=== PATIENT | male | born 1965 | race Caucasian/White ===

== ENCOUNTER 2019-06-02 15:33 | Inpatient (IN) | payer OTHER ==
[~2019-06-02] VITALS: Ht 162.6 cm; Wt 128.8 kg
--- NOTE | 2019-06-02 15:45 | NUR ---
Patient ambulated to bed 6. RN evaluating patient at bedside.
[2019-06-02 15:50] VITALS: BP 134/79
[2019-06-02] MEDS ORDERED: ALBUTEROL SULFATE/IPRATROPIU 3 ML SOL IH ONE ×2 (15:50→18:05)
--- NOTE | 2019-06-02 15:51 | NUR ---
RESP THERAPY AT BEDSIDE.
--- NOTE | 2019-06-02 15:54 | NUR ---
ASTHMATIC 59 YR OLD AAOX4 MALE BIB SELF C/O SOB AND COUGH X 4 DAYS. PT HAS HX OF ASTHMA. HX/RX: ASTHMA, ALBUTEROL
[2019-06-02] MEDS ORDERED: methylPREDNISolone SS 125 MG in WATER STERILE 2 ML IM ONE (15:55)
[2019-06-02] MEDS ORDERED: methylPREDNISolone SS 125 MG/2 ML VIAL ONE (16:00)
[2019-06-02] MEDS ORDERED: WATER STERILE 10 ML MC ONE (16:00)
--- NOTE | 2019-06-02 16:04 | NUR ---
RAD AT BEDSIDE
--- NOTE | 2019-06-02 16:06 | NUR ---
histotechnologist at bedside.
--- NOTE | 2019-06-02 16:40 | NUR ---
EKG completed by EMT at bedside.
[2019-06-02 16:59] LABS: BASOPHILS % (AUTO) 0.4 % (0.0-2.0); EOSINOPHILS # (AUTO) 0.3 K/uL (0-0.4); EOSINOPHILS % (AUTO) 3.4 % (0.0-4.0); HEMATOCRIT 45.1 % (36-52); HEMOGLOBIN 14.9 g/dL (12.0-18.0); LYMPHOCYTES # (AUTO) 0.8 K/uL (2.0-11.5); LYMPHOCYTES % (AUTO) 8.2 % (20.5-51.1); MEAN CORPUSCULAR HEMOGLOBIN 28 pg (27-31); MEAN CORPUSCULAR HGB CONC 33 g/dL (33-37); MEAN CORPUSCULAR VOLUME 83.3 fL (80-94); MONOCYTES # (AUTO) 0.6 K/uL (0.8-1.0); MONOCYTES % (AUTO) 6.4 % (1.7-9.3); NEUTROPHILS # (AUTO) 7.7 K/uL (1.8-7.7); NEUTROPHILS % (AUTO) 81.6 % (42.2-75.2); PLATELET COUNT (AUTO) 158 K/uL (140-450); RED BLOOD CELL COUNT(AUTO) 5.42 MIL/uL (4.20-6.10); RED CELL DISTRIBUTION WIDTH 14.4 % (11.6-13.7); WHITE BLOOD COUNT (AUTO) 9.5 K/uL (4.8-10.8)
[2019-06-02 17:15] LABS: PROTHROMBIN TIME 10.2 secs (10.8-13.4)
[2019-06-02 17:21] LABS: ANION GAP 12.6 (8-16); CARBON DIOXIDE 30.7 mmol/L (21-32); CREATININE 1.2 mg/dL (0.6-1.3); POTASSIUM 3.3 mmol/L (3.5-5.1); TOTAL BILIRUBIN 0.4 mg/dL (0.0-1.0)
[2019-06-02 17:22] LABS: ALBUMIN 3.5 g/dL (3.4-5.0)
[2019-06-02] MEDS ORDERED: NACL 0.9% 500 ML IV ONE (18:05)
[2019-06-02] MEDS ORDERED: MAG SULF 2000 MG/WATER PREMIX 50 ML IV ONE (18:05)
[2019-06-02] MEDS ORDERED: methylPREDNISolone SS 125 MG/2 ML VIAL IVP ONE (18:05)
[2019-06-02] MEDS ORDERED: ACETAMINOPHEN 325 MG TAB PO PRN (18:20)
[2019-06-02] MEDS ORDERED: ONDANSETRON 4 MG/2 ML VIAL IVP PRN (18:20)
[2019-06-02] MEDS ORDERED: POTASSIUM CHLORIDE 10 MEQ TABER PO SCH (18:20)
[2019-06-02] MEDS ORDERED: ALBUTEROL SULFATE/IPRATROPIU 3 ML SOL IH PRN (18:20)
[2019-06-02] MEDS ORDERED: PRON INH (18:49)
--- NOTE | 2019-06-02 19:05 | NUR ---
REPORT RECEIVED FROM ELECTION ASSISTANT MAYRA AT BEDSIDE FOR CONTINUITY OF CARE. PATIENT AOX4, AMBULATORY, ARRIVED TO FLOOR VIA WHEELCHAIR. PATIENT HAS INTERMITTENT COUGH, NO S/S OF SOB OR DISTRESS ON ROOM AIR. PATIENT DENIES PAIN. IV SITE INTACT, PATENT, ASYMPTOMATIC, INFUSING IVF WELL. MRSA SCREENING DONE. ORIENTED PATIENT TO ROOM, CALL LIGHT, BATHROOM, AND TV. PATIENT VERBALIZED UNDERSTANDING.
--- NOTE | 2019-06-02 19:06 | NUR ---
Patient will be admitted to care of DR PETTIT. Admited to M/S. Will go to [facility]. Belongings list completed. Report to [facility] CHISHOLM.
[2019-06-02 19:13] LABS: FREE T4 (FREE THYROXINE) 0.96 ng/dL (0.76-1.46); MAGNESIUM 1.5 mg/dL (1.8-2.4); PHOSPHORUS 3.3 mg/dL (2.5-4.9); THYROID STIMULATING HORMONE 0.75 uIU/mL (0.34-3.74)
[2019-06-02] MEDS ORDERED: AZITHROMYCIN 250 MG TAB PO SCH (19:25)
--- NOTE | 2019-06-02 19:25 | NUR ---
REPORT GIVEN TO DEHYDROGENATION CONVERTER OPERATOR NURSE AT BEDSIDE FOR CONTINUITY OF CARE.
--- NOTE | 2019-06-02 19:30 | NUR ---
RECEIVED FROM AM RN IN BED AWAKE AND ALERT. ABLE TO VERBALIZE NEEDS WELL. NO SOB. DENIES ANY PAIN AT THIS TIME. CALL LIGHT WITH IN REACH. ORIENTED TO BED, CALL LIGHT USE AND ROOM. ENCOURAGED TO CALL FOR ANY HELP HE MAY NEED. PT. ABLE TO UNDERSTAND TRISTANIAN AND MALAGASY NOTED. HAD BEEN ADMINISTERED SOLU MEDROL IVP AND BREATHING TREATMENTS IN ER. SKIN INTACT.
[2019-06-02] MEDS ORDERED: cefTRIAXone 1,000 MG VIAL ONE (19:53)
[2019-06-02 20:00] VITALS: BP 111/73
[2019-06-02] MEDS: DOCUSATE SODIUM 100 MG GELCAP PO SCH (20:30)
[2019-06-02] MEDS ORDERED: DYR50 PO (20:38)
--- NOTE | 2019-06-02 21:00 | NUR ---
RESIDENT MD IN HERE TALKING WITH PT. FOR ADMISSION AND HISTORY TAKING WITH HELP OF CO FOUNDER # [phone]. PT. PROVIDED WITH JHONATAN COBOS REQUESTED RT MANZANO. ABLE TO VERBALIZE IN [place] TOO.
[2019-06-02] MEDS: BUDESONIDE 0.5 MG/2 ML NEBU INH SCH (21:12)
[2019-06-02] MEDS: NACL 0.9% 1,000 ML IV SCH (21:59)
--- NOTE | 2019-06-02 22:01 | NUR ---
ACCOMPANYING SPOUSE /PT TO RESTROOM TO URINATE. NOTED ABLE TO STAND UP INDEPENDENTLY. ROM X 4. NO COMPLAINTS OF ANY SOB AT THIS TIME. ROOM AIR. 93 %. 02 SAT. AFEBRILE. CALL LIGHT WITH IN REACH AT ALL TIMES.
[2019-06-02] MEDS ORDERED: PNEUMOCOCCAL VACCINE 23 MCG/0.5 ML VIAL IMVAC SCH (22:40)
--- NOTE | 2019-06-02 23:17 | NUR ---
SLEEPING AT THIS TIME. CALL LIGHT AT BEDSIDE FOR EASY ACCESS. COUGHING STILL INTERMITTENTLY. AFEBRILE. WITH NS AT 100 ML INFUSING WELL AT THIS TIME.
[2019-06-03] VITALS: BP 117/66
[2019-06-03] MEDS: methylPREDNISolone SS 40 MG/ML VIAL IVP SCH ×5 (00:27→23:04)
[2019-06-03 02:53] LABS: APPEARANCE,URINE CLEAR (CLEAR); BILIRUBIN,URINE NEGATIVE (NEGATIVE); BLOOD, URINE NEGATIVE (NEGATIVE); COLOR,URINE YELLOW (YELLOW); LEUKOCYTE ESTERASE ,URINE NEGATIVE (NEGATIVE); NITRITE, URINE NEGATIVE (NEGATIVE); UGLUCOSE NEGATIVE (NEGATIVE)
[2019-06-03 02:57] LABS: BARBITURATE, URINE NEG. ng/ml (NEG <=200); BENZODIAZEPINE, URINE NEG. ng/mL (NEG <=200); CANNABINOID, URINE NEG. ng/mL (NEG <=50); COCAINE, URINE NEG. ng/mL (NEG <=300); OPIATE, URINE NEG. ng/mL (NEG <=2000); PHENCYCLIDINE SCREEN,URINE NEG. ng/mL (NEG <=25)
[2019-06-03 03:41] LABS: RBC,URINE 0-5 /HPF (0-5); WBC,URINE NONE SEEN /HPF (0-5)
[2019-06-03 03:42] LABS: HYALINE CASTS, URINE 0-2 /LPF (None Seen)
--- NOTE | 2019-06-03 03:52 | NUR ---
PT. SLEEPING WELL. NO COMPLAINTS OF SOB SINCE ADMISSION ON THE FLOOR. WITH BREATHING TREATMENTS. NO ADVERSE REACTIONS TO IV ABT AND P.O ABT ADMINISTERED. CALL LIGHT WITH IN REACH.
[2019-06-03] MEDS: NACL 0.9% 1,000 ML IV SCH ×2 (04:14→14:20)
[2019-06-03] MEDS ORDERED: methylPREDNISolone SS 125 MG/2 ML VIAL IVP SCH (06:00)
--- NOTE | 2019-06-03 06:25 | NUR ---
PEAK FLOW:PRE TX 120 POST TX 150
[2019-06-03] MEDS: BUDESONIDE 0.5 MG/2 ML NEBU INH SCH ×2 (06:33→20:15)
--- NOTE | 2019-06-03 06:51 | NUR ---
BREATHING TREATMENT ON GOING AT THIS TIME. NO COMPLAINTS DONE. DENIES ANY PAIN AT THIS TIME. ABLE TO AMBULATE WELL TO RESTROOM. CALL LIGHT WITH IN REACH AT ALL TIMES. WILL ENDORSE TO AM RN FOR CONTINUITY OF CARE.
[2019-06-03] MEDS: ALBUTEROL SULFATE/IPRATROPIU 3 ML SOL IH SCH ×4 (06:54→23:32)
--- NOTE | 2019-06-03 07:13 | NUR ---
RECEIVED PATIENT FROM GATE WATCH NURSE FOR CONTINUITY OF CARE. PATIENT IS SLEEPING, BUT OPEN EYES WHEN NAME IS CALLED. RESPIRATIONS EVEN AND UNLABORED, ON 2L O2 VIA NC. PATIENT DENIES SOB. VISIBLE CHEST RISE NOTED. DENIES CHEST PAIN. ABDOMEN SOFT, ROUND, AND NONTENDER. BOWEL SOUNDS ACTIVE X4 QUADS. SKIN WARM, DRY, AND INTACT. PATIENT IS AMBULATORY. BED IN LOW POSITION. CALL LIGHT IS WITHIN REACH. SAFETY MEASURES IN PLACE. WILL CONTINUE TO MONITOR.
[2019-06-03 07:54] LABS: HEMATOCRIT 40.9 % (36-52); HEMOGLOBIN 13.9 g/dL (12.0-18.0); MEAN CORPUSCULAR HEMOGLOBIN 28 pg (27-31); MEAN CORPUSCULAR HGB CONC 34 g/dL (33-37); MEAN CORPUSCULAR VOLUME 80.9 fL (80-94); PLATELET COUNT (AUTO) 145 K/uL (140-450); RED BLOOD CELL COUNT(AUTO) 5.05 MIL/uL (4.20-6.10); WHITE BLOOD COUNT (AUTO) 9.7 K/uL (4.8-10.8)
[2019-06-03 08:00] VITALS: BP 137/100
[2019-06-03 08:07] LABS: ANION GAP 12.3 (8-16); CARBON DIOXIDE 27.6 mmol/L (21-32); CREATININE 1.2 mg/dL (0.6-1.3); POTASSIUM 3.9 mmol/L (3.5-5.1)
[2019-06-03 08:59] LABS: MAGNESIUM 2.1 mg/dL (1.8-2.4)
[2019-06-03 09:00] LABS: CHOL/HDL RATIO 3.4 (1-4.5); PHOSPHORUS 2.6 mg/dL (2.5-4.9)
[2019-06-03] MEDS ORDERED: TRIAMTERENE 25 MG PO SCH (09:00)
[2019-06-03] MEDS: AZITHROMYCIN 250 MG TAB PO SCH (09:05)
[2019-06-03] MEDS: DOCUSATE SODIUM 100 MG GELCAP PO SCH ×2 (09:06→20:13)
--- NOTE | 2019-06-03 09:43 | NUR ---
HANG ROCEPHIN VIA IVPB. GIVEN MORNING MEDICATIONS PO. EXPLAINED TO PATIENT MEDS AND SIDE EFFECTS. PATIENT VERBALIZED UNDERSTANDING. PATIENT DENIES SOB. ON 2L O2 VIA NC. BED IN LOW POSITION. CALL LIGHT IS WITHIN REACH. WILL CONTINUE TO MONITOR
--- NOTE | 2019-06-03 10:00 | NUR ---
PATIENT REQUESTED TO CLOSE THE DOOR BECAUSE HE WANTS TO REST. NO COMPLAINTS OF SOB. ON 2L O2 VIA NC. WILL CONTINUE TO MONITOR
--- NOTE | 2019-06-03 10:34 | NUR ---
XRAY AT BEDSIDE
[2019-06-03 10:52] LABS: BASOPHILS % (MANUAL) 0 % (0-2); EOSINOPHILS % (MANUAL) 0 % (0-4); LYMPHOCYTES % (MANUAL) 5 % (20-46); MONOCYTES % (MANUAL) 3 % (5-12)
--- NOTE | 2019-06-03 11:01 | NUR ---
PATIENT IS ON HIS PHONE AT THIS TIME. NO SOB. BED IN LOW POSITION. CALL LIGHT IS WITHIN REACH. WILL CONTINUE TO MONITOR
--- NOTE | 2019-06-03 11:53 | NUR ---
ADMINISTERED SOLU-MEDROL VIA IVP. EXPLAINED TO PATIENT MED AND SIDE EFFECTS. PATIENT VERBALIZED UNDERSTANDING. WILL CONTINUE TO MONITOR
--- NOTE | 2019-06-03 11:54 | NUR ---
HANG NEW BAG OF 1000 NS AT RATE OF 100 ML/HR
[2019-06-03] MEDS ORDERED: guaiFENesin/CODEINE 100/10MG 5 ML UDC PO PRN (12:35)
--- NOTE | 2019-06-03 12:51 | NUR ---
PEAK FLOW PRE TX :160 POST TX 170
[2019-06-03 16:00] VITALS: BP 142/74
[2019-06-03] MEDS ORDERED: MAG SULF 2000 MG/WATER PREMIX 100 ML IV SCH (16:00)
[2019-06-03] MEDS: MAG SULF 2000 MG/WATER PREMIX 100 ML IV SCH ×2 (16:19→18:33)
--- NOTE | 2019-06-03 17:01 | NUR ---
PATIENT IS AWAKE, TALKING TO FAMILY MEMBERS. NO SOB. ON 2L O2 VIA NC. BED IN LOW POSITION. CALL LIGHT IS WITHIN REACH. WILL CONTINUE TO MONITOR
--- NOTE | 2019-06-03 17:51 | NUR ---
GIVEN SOLU-MEDROL VIA IVP. EXPLAINED TO PATIENT MED AND SIDE EFFECTS. PATIENT VERBALIZED UNDERSTANDING. BED IN LOW POSITION. CALL LIGHT IS WITHIN REACH. WILL CONTINUE TO MONITOR
--- NOTE | 2019-06-03 18:33 | NUR ---
HANG 2ND BAG OF MAG RIDER A BRONCHODILATOR FOR ASTHMA. EXPLAINED MED AND SIDE EFFECTS. PATIENT VERBALIZED UNDERSTANDING. BED IN LOW POSITION. CALL LIGHT IS WITHIN REACH.
--- NOTE | 2019-06-03 19:18 | NUR ---
ENDORSED PATIENT TO THE NIGHT NURSE FOR CONTINUITY OF CARE. AAOX4. NO SIGNS OF DISTRESS NOTED. BED IN LOW POSITION.
--- NOTE | 2019-06-03 19:19 | NUR ---
RECEIVED BEDSIDE REPORT FROM DAY SHIFT NURSE. PT IN BED, RESTING. NO SOB OR ANY RESPIRATORY DISTRESS NOTED, BREATHING EVEN AND UNLABORED WITH 2LPM O2 VIA NC. SKIN INTACT, WARM AND DRY TO TOUCH. IV SITE ON LAC, 20G, PATENT, INTACT, AND ASYMPTOMATIC. BOARD UPDATED, POC REVIEWED AND DISCUSSED WITH PT. PT VERBALIZED UNDERSTANDING. ALL SAFETY MEASUREMENT ARE MET. BED IN LOW POSITION, CALL LIGHT WITHIN REACH.
--- NOTE | 2019-06-03 20:17 | NUR ---
GIVEN COLACE, AND HEPARIN MD ORDERED. PT TOLERATED WELL.
--- NOTE | 2019-06-03 20:20 | NUR ---
RECEIVED PT FROM AM SHIFT. PT IN NO APPARENT RESPIRATORY DISTRESS AT THIS TIME; HR 75, RR 20, SPO2 94% ON 2L NC, AND A WHEEZING BREATH SOUNDS. HHN TX GIVEN ORDERED WITH NO ADVERSE REACTION. PEAK FLOW: PRE 160 AND POST 170. WILL CONTINUE TO MONITOR PT.
--- NOTE | 2019-06-03 22:10 | NUR ---
PT LAYING ON BED, WATCHING TV. NO ACUTE DISTRESS NOTED.
--- NOTE | 2019-06-03 23:04 | NUR ---
GIVEN SOLU-MEDROL MD ORDERED. PT TOLERATED WELL.
[2019-06-04] VITALS: BP 128/82
[2019-06-04] MEDS: MELATONIN 3 MG TAB PO PRN (00:05)
--- NOTE | 2019-06-04 00:05 | NUR ---
PT C/O SLEEPLESSNESS, GIVEN MELATONIN MD ORDERED.
[2019-06-04] MEDS: NACL 0.9% 1,000 ML IV SCH ×3 (00:08→20:49)
--- NOTE | 2019-06-04 02:22 | NUR ---
PT SLEEPING IN BED COMFORTABLY. NO ACUTE DISTRESS NOTED.
--- NOTE | 2019-06-04 04:07 | NUR ---
PT SLEEPING IN BED COMFORTABLY. NO ACUTE DISTRESS NOTED.
[2019-06-04] MEDS: methylPREDNISolone SS 40 MG/ML VIAL IVP SCH ×3 (05:35→18:47)
--- NOTE | 2019-06-04 05:35 | NUR ---
GIVEN SOLU MEDROL MD ORDERED. PT TOLERATED WELL.
[2019-06-04] MEDS ORDERED: methylPREDNISolone SS 40 MG/ML VIAL IVP SCH (06:00)
[2019-06-04] MEDS: ALBUTEROL SULFATE/IPRATROPIU 3 ML SOL IH SCH ×4 (06:40→19:31)
[2019-06-04] MEDS: BUDESONIDE 0.5 MG/2 ML NEBU INH SCH ×2 (06:41→19:31)
--- NOTE | 2019-06-04 07:15 | NUR ---
RECEIVED BEDSIDE REPORT FROM STERILE TECHNICIAN NURSE. PT IS AWAKE AND ALERT IN BED ON 2L O2 NC. NO S/S OF ACUTE DISTRESS OR SOB. IV SITE L AC 20 G, INFUSING NS 100 ML/HR. SKIN IS INTACT. PT IS AMBULATORY. CALL LIGHT IS WITHIN REACH. WILL CONTINUE TO MONITOR.
--- NOTE | 2019-06-04 07:27 | NUR ---
ENDORSED PT TO DAY SHIFT NURSE FOR CONTINUOUS CARE. PT IN STABLE CONDITION.
[2019-06-04 07:38] LABS: BASOPHILS # (AUTO) 0.1 K/uL (0.00-0.22); BASOPHILS % (AUTO) 0.5 % (0.0-2.0); EOSINOPHILS % (AUTO) 0.1 % (0.0-4.0); HEMATOCRIT 39.7 % (36-52); HEMOGLOBIN 13.2 g/dL (12.0-18.0); LYMPHOCYTES # (AUTO) 0.5 K/uL (2.0-11.5); MEAN CORPUSCULAR HEMOGLOBIN 27 pg (27-31); MEAN CORPUSCULAR HGB CONC 33 g/dL (33-37); MEAN CORPUSCULAR VOLUME 82.2 fL (80-94); MONOCYTES # (AUTO) 0.4 K/uL (0.8-1.0); MONOCYTES % (AUTO) 2.9 % (1.7-9.3); NEUTROPHILS # (AUTO) 12.6 K/uL (1.8-7.7); NEUTROPHILS % (AUTO) 92.5 % (42.2-75.2); PLATELET COUNT (AUTO) 138 K/uL (140-450); RED BLOOD CELL COUNT(AUTO) 4.83 MIL/uL (4.20-6.10); RED CELL DISTRIBUTION WIDTH 14.3 % (11.6-13.7); WHITE BLOOD COUNT (AUTO) 13.7 K/uL (4.8-10.8)
[2019-06-04 07:53] LABS: ANION GAP 11.4 (8-16); CARBON DIOXIDE 27.5 mmol/L (21-32); MAGNESIUM 2.4 mg/dL (1.8-2.4); PHOSPHORUS 2.8 mg/dL (2.5-4.9); POTASSIUM 3.9 mmol/L (3.5-5.1)
[2019-06-04 08:00] VITALS: BP 122/76
--- NOTE | 2019-06-04 08:28 | NUR ---
PT UPGRADED TO TELEMETRY. ENDORSED PT TO [facility] GALICIA, FOR CONTINUITY OF CARE.
--- NOTE | 2019-06-04 08:30 | NUR ---
RECEIVED BEDSIDE REPORT FROM BRADY GARIBAY FOR CONTINUITY OF CARE. PT AWAKE AND RESTING ON BED. PT IS AOX4, ABLE TO MAKE NEED KNOWN AND COMMUNICATE APPROPRIATELY. RESPIRATION EVEN AND UNLABORED ON 2LPM VIA NC. DENIED CHEST PAIN, SOB AND DIZZINESS. NO SIGNS OF DISTRESS NOTED. IV ON LAC 20G, CLEAN AND INTACT, INFUSING NS AT 100 ML/HR. SKIN CLEAN AND INTACT. PT IS AMBULATORY AND CONTINENT. DISCUSSED PLAN OF CARE WITH PT AND PT SAID OK. TELE MONITOR ATTACHED. SAFETY MEASURES IN PLACE. BED IN LOW POSITION AND CALL LIGHT WITHIN REACH. INSTRUCTED PT TO USE THE CALL LIGHT FOR ANY ASSISTANCE AND PT WAS AWARE.
--- NOTE | 2019-06-04 08:52 | NUR ---
PATIENT HAS BEEN SCREENED AND CATEGORIZED LOW NUTRITION RISK. PATIENT WILL BE SEEN WITHIN 7 DAYS OF ADMISSION. 06/09/[address]
--- NOTE | 2019-06-04 08:55 | NUR ---
IS TALKING TO PT AT BEDSIDE. NO SIGNS OF DISTRESS NOTED. TELE MONITOR ATTACHED. SAFETY MEASURES IN PLACE.
[2019-06-04] MEDS: AZITHROMYCIN 250 MG TAB PO SCH (09:25)
[2019-06-04] MEDS: DOCUSATE SODIUM 100 MG GELCAP PO SCH ×2 (09:25→20:46)
--- NOTE | 2019-06-04 09:26 | NUR ---
INFORMED THAT PLT IS 138L FROM AM LAB, AND STATED IT'S OK TO ADMINISTER HEPARIN SUBQ. ADMINISTERED SCHEDULED MEDS PER MD ORDER, MEDS ED PROVIDED TO PT AND PT SAID OK. PT TOLERATED MEDS WELL. PT AWAKE AND RESTING ON BED AT THIS TIME. INFORMED PT THAT DR ORDER CT ANGIO CHEST WITH CONTRAST AND CONSENT NEEDED, PT SAID OK. WILL OBTAIN CONSENT SHORTLY. PT DENIES PAIN, SOB AND DIZZINESS. NO SIGNS OF DISTRESS NOTED. TELE MONITOR ATTACHED. SAFETY MEASURES IN PLACE.
--- NOTE | 2019-06-04 10:44 | NUR ---
OBTAINED CONSENT FROM PATIENT FOR CT SCAN. PT WAS AWARE OF PROCEDURE AND AGREED TO PROCEDURE. PT IS SITTING AT BED SIDE NO SIGNS OF DISTRESS NOTED. TELE MONITOR ATTACHED. SAFETY MEASURES IN PLACE.
--- NOTE | 2019-06-04 10:47 | NUR ---
CALLED [facility] AND SPOKE RAFAEL. PER RAFAEL, SHE WILL INTERNAL CONTROL CONSULTANT PT AROUND 1200 NOON AND MAKE NO FOOD AND DRINK FROM NOW ON. INSTRUCTED PT TO NOT EAT AND DRINK FROM NOW ON, PT AWARE.
--- NOTE | 2019-06-04 11:11 | NUR ---
RT IS GOING ABG AT BEDSIDE. NO SIGNS OF DISTRESS NOTED. TELE MONITOR ATTACHED. SAFETY MEASURES IN PLACE.
--- NOTE | 2019-06-04 11:51 | NUR ---
EXPLAINED TO PT THAT OUR PHARMACY DOES NOT HAVE THE DOSAGE OF DYRENIUM 25 MG AND THE ONE WE HAVE IS IN CAPSULE, CANNOT BREAK IT. PT WAS AWARE AND SAID, "OK, I WILL TEXT MY TO BRING IT IN ONCE SHE COMES VISIT." PT IS AWAKE AND RESTING ON BED. NO SIGNS OF DISTRESS NOTED. TELE MONITOR ATTACHED. SAFETY MEASURES IN PLACE.
--- NOTE | 2019-06-04 12:53 | NUR ---
ADMINISTERED SOLUMEDROL PER MD ORDER. PATIENT SITTING AT BEDSIDE EATING LUNCH TRAY. NO SIGNS OF DISTRESS NOTED. PT BED IN LOW POSITION AND CALL LIGHT IN REACH. PT INSTRUCTED TO USE CALL LIGHT FOR ASSISTANCE
--- NOTE | 2019-06-04 13:35 | NUR ---
HOURLY ROUNDING. PT IS LAYING IN BED RECEIVING AN ECHOCARDIOGRAM. NO DISTRESS NOTED. TELE MONITOR IN PLACE. SAFETY MEASURES IN PLACE. CALL-LIGHT WITHIN REACH AND PT INSTRUCTED TO USE IT FOR ASSISTANCE.
--- NOTE | 2019-06-04 14:31 | NUR ---
RECEIVED A CALL FROM PT'S SHAE AND EXPLAINED TO SHAE ON REGARD OF MEDICATION-DYRENIUM 25 MG. SHAE WAS AWARE AND SAID, "OK, I WILL BRING IT WHEN I VISIT HIM." UPDATED SHAE WITH PT'S CURRENT CONDITION. PT IS TALKING WITH SHAE ON THE PHONE AT THIS TIME. NO SIGNS OF DISTRESS NOTED. TELE MONITOR ATTACHED. SAFETY MEASURES IN PLACE.
--- NOTE | 2019-06-04 15:04 | NUR ---
RECEIVED VERBAL ORDER FROM DR MAO THAT ORDER 3ML DOUNEB FOR Q2H PRN. REPEATED AND CONFIRMED ORDER WITH DR MAO. Addendum: 06/04/19 at 1539 by Lucia Valdes RN DR FAN
--- NOTE | 2019-06-04 15:12 | NUR ---
HOURLY ROUNDING. PATIENT IS RESTING IN BED. NO SIGNS OF DISTRESS NOTED. PATIENTS BREATHING IS EVEN AND UNLABORED. TELE MONITOR ATTACHED. SAFETY MEASURES IN PLACE. BED IN LOW POSITION AND CALL LIGHT WITHIN REACH.
[2019-06-04] MEDS: ACETYLCYSTEINE 10% (100 MG/ML) 100 MG/ML VIAL INH SCH ×2 (15:18→19:31)
--- NOTE | 2019-06-04 15:51 | NUR ---
DISCHARGE PLANNING: THIS IS A 53 Y/O MALE PATIENT FROM HOME, WHO CAME IN DUE TO ASTHMA, COLD AND COUGH X 4 DAYS. PAST MEDICAL HISTORY INCLUDE ASTHMA AND HTN. INITIAL DIAGNOSIS OF ASTHMA EXACERBATION. CURRENT LABS INCLUDE WBC 13.7, H/H 13.2/39.7, NA/K 141/3.9, BUN/CREA 27/1.0. ON AZITHROMYCIN, ROCEPHIN AND SOLU-MEDROL. SPUTUM AND MRSA NARES PENDING. CARDIO AND PULMO CONSULTS IN PLACE. DC PLAN BACK TO HOME ONCE STABLE. Addendum: 06/05/19 at 1535 by Tabatha Amaya CURRENT LABS INCLUDE WBC 12.1, H/H 12.6/38.7, NA/K 143/4.0, BUN/CREA 23/0.9. ON AZITHROMYCIN AND ROCEPHIN. SPUTUM C/S PENDING. PULMO AND CARDIO CONSULTS IN PLACE. DC PLAN BACK TO HOME ONCE STABLE.
[2019-06-04 16:00] VITALS: BP 129/71
--- NOTE | 2019-06-04 18:47 | NUR ---
ADMINISTERED SOLUMEDROL PER MD ORDER. PT TOLERATED WELL. NO SIGNS OF DISTRESS NOTED. PT LAYING IN BED WATCHING TV. TELE MONITOR IN PLACE. SAFETY MEASURES IN PLACE. BED IN LOW POSITION AND CALL LIGHT WITHIN REACH. PT INFORMED TO USE CALL LIGHT FOR ASSISTANCE.
--- NOTE | 2019-06-04 19:27 | NUR ---
ENDORSED PT TO AS400 CONSULTANT NURSE AT BEDSIDE. PT LAYING IN BED WATCHING TV. NO SIGNS OF DISTRESS NOTED. PT IS STABLE. TELE MONITOR ATTACHED AND SAFETY MEASURES IN PLACE
--- NOTE | 2019-06-04 19:27 | NUR ---
RECIEVED PT .AAOX4 , ON O2 INH AT 2LPM/NC - O2 SAT .WNL . ON BREATHING TXT . IV SITE INTACT AND PATENT , ON SAFETY PRECAUTION PROTOCOL. PLAN OF CARE DISCUSSED AND VERBALIZE UNDERSTANDING - CALL LIGHT WITHIN REACH . WILL CONT. TO MONITOR.
[2019-06-04 20:00] VITALS: BP 125/68
--- NOTE | 2019-06-04 20:35 | NUR ---
ENDORSE TO KISSES FOR CONT. OF CARE . PT IS IN STABLE CONDITION.
--- NOTE | 2019-06-04 20:49 | NUR ---
ALL SCHEDULED MEDS WERE GIVEN PER ORDER. NO ASE NOTED. WILL CONTINUE TO MONITOR.
--- NOTE | 2019-06-04 21:36 | NUR ---
1931 PATIENTS PEAKFLOW PRE AND POST HHNTX 160/160. NO REAL IMPROVEMENT
--- NOTE | 2019-06-04 22:43 | NUR ---
CHECKED PATIENT. PATIENT IS ON THE PHONE NO DISTRESS NOTED. WILL CONTINUE TO MONITOR.
[2019-06-05] VITALS: BP 128/71
--- NOTE | 2019-06-05 00:10 | NUR ---
VITALS WERE TAKEN. PATIENT IS IN STABLE CONDITION. NO DISTRESS NOTED. DENIES PAIN. WILL CONTINUE TO MONITOR.
--- NOTE | 2019-06-05 00:44 | NUR ---
ENDORSED GIVEN TO MILENA GARIBAY FOR CONTINUITY OF CARE. PATIENT IS IN STABLE CONDITION.
--- NOTE | 2019-06-05 00:49 | NUR ---
RECEIVED PT SLEEPING, VISIBLE CHEST RISE AND FALL, NO SIGNS OF SOB NOTED, ON O2 AT 2L VIA NC, IVF INFUSING WELL, CALL LIGHT WITHIN REACH, MONITORED CLOSELY.
[2019-06-05] MEDS: ALBUTEROL SULFATE/IPRATROPIU 3 ML SOL IH PRN (03:04)
[2019-06-05 04:00] VITALS: BP 125/71
--- NOTE | 2019-06-05 04:00 | NUR ---
PT SLEEPING, NO SIGNS OF DISTRESS, VITAL SIGNS STABLE, DENIES ANY PAIN, NO SOB NOTED, CONTINUE ON O2 AT 2L NC, MONITORED CLOSELY.
--- NOTE | 2019-06-05 05:50 | NUR ---
PT SEEN SITTING ON SIDE OF BED, NO SOB NOTED, IVF INFUSING WELL, MONITORED CLOSELY.
[2019-06-05] MEDS: NACL 0.9% 1,000 ML IV SCH ×2 (06:20→08:44)
[2019-06-05 07:17] LABS: MAGNESIUM 2.2 mg/dL (1.8-2.4); PHOSPHORUS 3.1 mg/dL (2.5-4.9)
[2019-06-05] MEDS: BUDESONIDE 0.5 MG/2 ML NEBU INH SCH ×2 (07:20→20:50)
[2019-06-05] MEDS: ALBUTEROL SULFATE/IPRATROPIU 3 ML SOL IH SCH ×4 (07:20→20:50)
[2019-06-05] MEDS: ACETYLCYSTEINE 10% (100 MG/ML) 100 MG/ML VIAL INH SCH ×3 (07:20→20:50)
--- NOTE | 2019-06-05 07:20 | NUR ---
PT AWAKE, NO SIGNS OF DISTRESS, REPORT GIVEN TO RN KADEEM FOR CONTINUITY OF CARE.
--- NOTE | 2019-06-05 07:30 | NUR ---
RECEIVED PT AAOX4. NO SOB NOTED, PT ON OXYGEN AT 2LPM WITH SATS OF 97%. IV TO LAC PATENT AND INTACT. CHEST, DIMINISHED AIR ENTRY TO THE BASES, WHEEZING HEARD BILATERALLY UPON EXPIRATION. ABDOMEN ROUND BUT SOFT. BOWEL SOUNDS PRESENT. NO EDEMA NOTED. INSTRUCTED PT TO CALL FOR ASSISTANCE, CALL LIGHT WITHIN REACH, VERBALIZED UNDERSTANDING.
[2019-06-05 08:00] VITALS: BP 144/87
[2019-06-05 08:01] LABS: ANION GAP 11.9 (8-16); CARBON DIOXIDE 28.1 mmol/L (21-32); CREATININE 0.9 mg/dL (0.6-1.3)
[2019-06-05 08:24] LABS: BASOPHILS # (AUTO) 0.1 K/uL (0.00-0.22); BASOPHILS % (AUTO) 0.5 % (0.0-2.0); HEMATOCRIT 38.7 % (36-52); HEMOGLOBIN 12.6 g/dL (12.0-18.0); LYMPHOCYTES # (AUTO) 0.5 K/uL (2.0-11.5); LYMPHOCYTES % (AUTO) 4.2 % (20.5-51.1); MEAN CORPUSCULAR HEMOGLOBIN 27 pg (27-31); MEAN CORPUSCULAR HGB CONC 33 g/dL (33-37); MEAN CORPUSCULAR VOLUME 82.7 fL (80-94); MONOCYTES # (AUTO) 0.6 K/uL (0.8-1.0); MONOCYTES % (AUTO) 4.6 % (1.7-9.3); NEUTROPHILS # (AUTO) 10.9 K/uL (1.8-7.7); NEUTROPHILS % (AUTO) 90.7 % (42.2-75.2); PLATELET COUNT (AUTO) 143 K/uL (140-450); RED BLOOD CELL COUNT(AUTO) 4.69 MIL/uL (4.20-6.10); RED CELL DISTRIBUTION WIDTH 14.4 % (11.6-13.7); WHITE BLOOD COUNT (AUTO) 12.1 K/uL (4.8-10.8)
[2019-06-05] MEDS: DOCUSATE SODIUM 100 MG GELCAP PO SCH ×2 (08:45→21:39)
[2019-06-05] MEDS: AZITHROMYCIN 250 MG TAB PO SCH (08:45)
[2019-06-05] MEDS ORDERED: methylPREDNISolone SS 40 MG/ML VIAL IVP SCH (09:00)
[2019-06-05] MEDS: methylPREDNISolone SS 40 MG/ML VIAL IVP SCH ×2 (10:15→21:39)
[2019-06-05] MEDS ORDERED: HYDR-133 PO (10:41)
[2019-06-05] MEDS ORDERED: TRIAMTERENE HCTZ PO SCH (11:14)
--- NOTE | 2019-06-05 11:21 | NUR ---
PT AWAKE, NO SOB NOTED. NO C/O PAIN AT THIS TIME. ENDORSED TO [facility] FOR CONTINUITY OF CARE.
[2019-06-05 16:00] VITALS: BP 138/78
--- NOTE | 2019-06-05 19:30 | NUR ---
RECEIVED BEDSIDE REPORT FROM DAY SHIFT NURSE FOURTH MATE, PT STABLE, NO DISTRESS NOTED, IV TO L AC 20 G, PT PULLED IT OUT, WILL PUT IN NEW IV, PT ON 2LPM O2 VIA NC, PT STATED HAVING SHORTNESS OF BREATHE, RT CALLED FOR BREATHING TREATMENT, PT RESTING, NO DISTRESS NOTED, CALL LIGHT WITHIN REACH, WILL CONTINUE TO MONITOR.
--- NOTE | 2019-06-05 21:13 | NUR ---
RECEIVED PATIENT ON 3L NASAL CANNULA, PULSE OX SAT 97%. PRE-TX PEAK FLOW NOT OBTAINED DUE TO BEING CALLED TO ED FOR EMERGENCY. SCHEDULED BREATHING TREATMENTS ADMINISTERED. TOLERATED TXs WELL WITHOUT ADVERSE SIDE EFFECTS. POST PEAK FLOW OBTAINED AND DOCUMENTED ON TREATMENT FORM. PT MADE AWARE OF ORDERED MEDICATION FREQUENCY AND INSTRUCTED TO CALL NEEDED FOR SOB. POST TX ORAL RINSE DONE. TITRATED OXYGEN TO 2L NC, PULSE OX SAT 96%. NO ACUTE RESPIRATORY DISTRESS NOTED AT THIS TIME. WILL CONTINUE TO MONITOR.
--- NOTE | 2019-06-05 21:45 | NUR ---
DUE MEDICATION ADMINISTERED, PT TOLERATED WELL, NO DISTRESS NOTED, CALL LIGHT WITHIN EACH, WILL CONTINUE TO MONITOR.
--- NOTE | 2019-06-05 23:22 | NUR ---
CHECKED ON PT, PT RESTING, NO DISTRESS NOTED, CALL LIGHT WITHIN REACH, WILL CONTINUE TO MONITOR.
[2019-06-06] VITALS: BP 152/82
[2019-06-06] MEDS: MELATONIN 3 MG TAB PO PRN (01:20)
--- NOTE | 2019-06-06 01:20 | NUR ---
PT STATED UNABLE TO SLEEP, REQUESTING SLEEPING PILL, MEDICATION PER DR ORDER MELATONIN ADMINISTERED, PT TOLERATED WELL, CALL LIGHT WITHIN REACH, WILL CONTINUE TO MONITOR.
[2019-06-06] MEDS: NACL 0.9% 1,000 ML IV SCH ×2 (02:21→13:01)
[2019-06-06] MEDS: ALBUTEROL SULFATE/IPRATROPIU 3 ML SOL IH PRN (03:22)
--- NOTE | 2019-06-06 03:29 | NUR ---
PT SLEEPING, NO DISTRESS NOTED, CALL LIGHT WITHIN REACH, WILL CONTINUE TO MONITOR
--- NOTE | 2019-06-06 03:32 | NUR ---
PATIENT COMPLAINS OF SOB. PRN HHN TX ADMINISTERED. TOLERATED TX WELL WITHOUT ADVERSE SIDE EFFECTS. PRE AND POST PEAK FLOW PERFORMED BY PATIENT WITH IMPROVEMENT POST TX. NO ACUTE RESPIRATORY DISTRESS NOTED. WILL CONTINUE TO MONITOR.
[2019-06-06 07:13] LABS: BASOPHILS % (AUTO) 0.4 % (0.0-2.0); HEMATOCRIT 40.2 % (36-52); HEMOGLOBIN 13.4 g/dL (12.0-18.0); LYMPHOCYTES # (AUTO) 0.8 K/uL (2.0-11.5); LYMPHOCYTES % (AUTO) 8.9 % (20.5-51.1); MEAN CORPUSCULAR HEMOGLOBIN 27 pg (27-31); MEAN CORPUSCULAR HGB CONC 33 g/dL (33-37); MEAN CORPUSCULAR VOLUME 81.7 fL (80-94); MONOCYTES # (AUTO) 0.3 K/uL (0.8-1.0); MONOCYTES % (AUTO) 3.6 % (1.7-9.3); NEUTROPHILS % (AUTO) 87.1 % (42.2-75.2); PLATELET COUNT (AUTO) 156 K/uL (140-450); RED BLOOD CELL COUNT(AUTO) 4.92 MIL/uL (4.20-6.10); WHITE BLOOD COUNT (AUTO) 9.2 K/uL (4.8-10.8)
--- NOTE | 2019-06-06 07:15 | NUR ---
RECEIVED BEDSIDE REPORT FROM AMIE. PT IS AWAKE AND ALERT SITTING UP IN BED, NO S/S OF ACUTE DISTRESS, NO C/O PAIN. ON 2P O2 NC. SKIN INTACT. PT IS AMBULATORY. IV SITE L FA 22 G INFUSING NS 100 ML/HR. CALL LIGHT IS WITHIN REACH,.
[2019-06-06 07:24] LABS: ANION GAP 10.7 (8-16); POTASSIUM 3.7 mmol/L (3.5-5.1)
--- NOTE | 2019-06-06 07:28 | NUR ---
ENDORSED PT TO DAY SHIFT NURSE BRADY RN, PT STABLE, NO DISTRESS NOTED, CALL LIGHT WITHIN REACH.
[2019-06-06 08:00] VITALS: BP 147/93
[2019-06-06] MEDS: methylPREDNISolone SS 40 MG/ML VIAL IVP SCH (08:40)
[2019-06-06] MEDS: DOCUSATE SODIUM 100 MG GELCAP PO SCH (08:40)
[2019-06-06] MEDS: AZITHROMYCIN 250 MG TAB PO SCH (08:40)
[2019-06-06] MEDS: ALBUTEROL SULFATE/IPRATROPIU 3 ML SOL IH SCH ×2 (08:42→11:49)
[2019-06-06] MEDS: ACETYLCYSTEINE 10% (100 MG/ML) 100 MG/ML VIAL INH SCH (08:47)
--- NOTE | 2019-06-06 08:52 | NUR ---
AM MEDS ADMINISTERED. PT TOLERATED WELL. PT GETTING HIS BREATHING TX AT THIS TIME.
[2019-06-06] MEDS ORDERED: TRIAMTERENE HCTZ PO SCH (09:00)
[2019-06-06] MEDS: BUDESONIDE 0.5 MG/2 ML NEBU INH SCH (09:54)
[2019-06-06] MEDS ORDERED: LEVO750T2 PO (13:53)
[2019-06-06] MEDS ORDERED: PRON INH (13:53)
[2019-06-06] MEDS ORDERED: PRED20TA5 PO (13:53)
[2019-06-06] MEDS ORDERED: PUL.5N INH (13:53)
[2019-06-06] MEDS ORDERED: INFLUENZA VACCINE QUAD 0.5 ML SYR IMVAC PRN (14:35)
--- NOTE | 2019-06-06 15:15 | NUR ---
PT HAS DC'D. DC INSTRUCTIONS PROVIDED, PT VERBALIZED UNDERSTANDING OF DC INSTRUCTIONS AND PRESCRIPTIONS. IV SITE AND WRIST BANDS REMOVED. PT'S OWN MEDS WERE RETURNED TO HIM FROM PHARMACY. PT LEFT IN STABLE CONDITION WITH ALL HIS BELONGINGS. Addendum: 06/06/19 at 1517 by Vashti Shaikh RN FLU AND PNA VACCINES WERE ADMINISTERED UPON DC.
== END 2019-06-06 15:05 | disposition home or self-care (01) | DRG 193 ==
LOC: EDBD 15:33 → MED 15:33 → MTU 18:20
PROVIDERS: ADMIT General Practice; ATTEND General Practice
PROC: 3E02340 Introduction of Influenza Vaccine into Muscle, Percutaneous Approach (ICD-10-PCS; principal; 2019-06-02)
PROC: 3E0234Z Introduction of Serum, Toxoid and Vaccine into Muscle, Percutaneous Approach (ICD-10-PCS; 2019-06-06)
DX: J18.9 Pneumonia, unspecified organism (principal); J96.00 Acute respiratory failure, unspecified whether with hypoxia or hypercapnia; J45.901 Unspecified asthma with (acute) exacerbation; Z68.42 Body mass index [BMI] 45.0-49.9, adult; E66.2 Morbid (severe) obesity with alveolar hypoventilation; I10 Essential (primary) hypertension; E87.6 Hypokalemia; E83.42 Hypomagnesemia; Z23 Encounter for immunization; J84.10 Pulmonary fibrosis, unspecified; I11.9 Hypertensive heart disease without heart failure; M94.0 Chondrocostal junction syndrome [Tietze]
CPT/HCPCS: 36415; 36600; 71045; 71275; 80048; 80053; 80305; 81001; 82150; 82803; 83036; 83690; 83735; 83880; 84100; 84439; 84443; 84484; 85025; 85610; 85730; 87081; 87804; 90732; 93005; 93970; 94640; 96372; 96374; 99285; J0696; J1644; J2920; J2930; J3475; J7030; J7060; J7620; J7626; Q0092; Q9967

== ENCOUNTER 2019-08-21 07:55 | Emergency (ER) | payer OTHER, SELFPAY ==
[~2019-08-21] VITALS: Ht 160 cm; Wt 99.8 kg
[~2019-08-21 07:55] MED LIST: HYDR-133 PO; LEVO750T2 PO; PRED20TA5 PO; PRON INH; PUL.5N INH
[2019-08-21 07:57] VITALS: BP 163/99
--- NOTE | 2019-08-21 07:57 | NUR ---
54 Y/O M C/C BODYACHES/FEVER X 4 DAYS. PER PT HAS BEEN EXPOSED TO POSITIVE PATIENTS AT HIS WORK FACILITY, PT WORKS IN [employer]. LAST EXPOSURE TO A POSITIVE COVID PATIENT 08/17/2019. PT PRESENTS AFEBRILE, WITH NO RESPIRATORY DISTRESS AND SLIGHT UNPRODUCTIVE COUGH. 99% RA SPO2. PT HAS BEEN TAKING TYLENOL AND ASA FOR FEVER WITH RELIEF, LAST TAKEN MIDNIGHT. ALLERGIES TO TETRACICLYNE. HX ASTHMA,HTN. HAS NOT TAKEN MORNING HTN RX. RX ALBUTEROL,TRAMTERENE. NO N/V/D. PT IN TENT. MD TO BE NOTIFIED.
--- NOTE | 2019-08-21 08:14 | NUR ---
ERMD AT TENT WITH PT
--- NOTE | 2019-08-21 08:23 | NUR ---
CXR completed by Blizuu.
--- NOTE | 2019-08-21 08:23 | NUR ---
COVID SWAB DONE TAKEN TO LAB ; CDC PAPER TAKEN TO LAB
[2019-08-21 09:43] VITALS: BP 152/90
--- NOTE | 2019-08-21 09:43 | NUR ---
Patient discharged with v/s stable. Written and verbal after care instructions given and explained. Patient alert, oriented and verbalized understanding of instructions. Ambulatory with steady gait. All questions addressed prior to discharge. ID band removed. Patient advised to follow up with PMD. Rx of AZITHROMYCIN given. Patient educated on indication of medication including possible reaction and side effects. Opportunity to ask questions provided and answered.
== END 2019-08-21 09:43 | disposition home or self-care (01) ==
LOC: EEVIPCON 07:55 → MED 07:55
DX: J18.9 Pneumonia, unspecified organism (principal); Z20.828 Contact with and (suspected) exposure to other viral communicable diseases; J45.909 Unspecified asthma, uncomplicated; I10 Essential (primary) hypertension; Z79.899 Other long term (current) drug therapy; Z88.1 Allergy status to other antibiotic agents
CPT/HCPCS: 36415; 71045; 87635; 99284; Q0092

== ENCOUNTER 2019-08-24 09:55 | Emergency (ER) | payer OTHER, SELFPAY ==
[~2019-08-24] VITALS: Ht 154.9 cm; Wt 113.9 kg
[2019-08-24 09:57] VITALS: BP 122/69
--- NOTE | 2019-08-24 10:03 | NUR ---
Ambulated to bed 7
--- NOTE | 2019-08-24 10:04 | NUR ---
Moved to bed 9
--- NOTE | 2019-08-24 10:23 | NUR ---
RT AT BEDSIDE
[2019-08-24] MEDS: NACL 0.9% 1,000 ML IV ONE (10:29)
--- NOTE | 2019-08-24 10:34 | NUR ---
54 YO MALE CO SOB FOR 2D. PT WAS HERE A FEW DAYS AGO AND WAS TESTED NEGATIVE FOR COVID AT THAT TIME. NO ABNORMAL BREATH SOUNDS NOTED ON AUSCULTATION. PT HAS HX OF ASTHMA. PT CURRENTLY TAKING ATX FOR PNA. PT IN NO PAIN AT THIS TIME.
[2019-08-24 10:36] LABS: HEMATOCRIT 40.5 % (36-52); HEMOGLOBIN 13.5 g/dL (12.0-18.0); MEAN CORPUSCULAR HEMOGLOBIN 28 pg (27-31); MEAN CORPUSCULAR HGB CONC 33 g/dL (33-37); MEAN CORPUSCULAR VOLUME 83.2 fL (80-94); PLATELET COUNT (AUTO) 183 K/uL (140-450); RED BLOOD CELL COUNT(AUTO) 4.87 MIL/uL (4.20-6.10); RED CELL DISTRIBUTION WIDTH 14.9 % (11.6-13.7); WHITE BLOOD COUNT (AUTO) 8.3 K/uL (4.8-10.8)
--- NOTE | 2019-08-24 10:52 | NUR ---
EKG COMPLETED AND RESULTS GIVEN TO GAUILAR.
--- NOTE | 2019-08-24 11:13 | NUR ---
RAD AT BEDSIDE
[2019-08-24 11:14] LABS: ALBUMIN 3.3 g/dL (3.4-5.0); ANION GAP 13.1 (8-16); CARBON DIOXIDE 28.5 mmol/L (21-32); CREATININE 1.4 mg/dL (0.6-1.3); EOSINOPHILS % (MANUAL) 9 % (0-4); LYMPHOCYTES % (MANUAL) 11 % (20-46); MONOCYTES % (MANUAL) 8 % (5-12); POTASSIUM 3.6 mmol/L (3.5-5.1); TOTAL BILIRUBIN 0.2 mg/dL (0.0-1.0)
[2019-08-24 11:15] LABS: BASOPHILS % (MANUAL) 0 % (0-2)
--- NOTE | 2019-08-24 12:19 | NUR ---
covid swab done and returned to lab
[2019-08-24 12:36] VITALS: BP 130/72
== END 2019-08-24 12:40 | disposition home or self-care (01) ==
LOC: MED 09:55
DX: R06.02 Shortness of breath (principal); R50.9 Fever, unspecified; R07.9 Chest pain, unspecified; M79.10 Myalgia, unspecified site; J45.909 Unspecified asthma, uncomplicated; I10 Essential (primary) hypertension; Z88.1 Allergy status to other antibiotic agents; Z79.899 Other long term (current) drug therapy; Z20.828 Contact with and (suspected) exposure to other viral communicable diseases
CPT/HCPCS: 36415; 36600; 71045; 80053; 82803; 83605; 83880; 84484; 85025; 85379; 87040; 87635; 93005; 99285; Q0092

== ENCOUNTER 2019-10-25 17:31 | Emergency (ER) | payer OTHER, SELFPAY ==
[~2019-10-25] VITALS: Ht 162.6 cm; Wt 102.1 kg
[2019-10-25 18:22] VITALS: BP 158/77
--- NOTE | 2019-10-25 18:41 | NUR ---
COVID SWAB DONE.
--- NOTE | 2019-10-25 18:43 | NUR ---
C/O SOB,BOWMAN 10/25,FEVER X 2 DAYS. HAD COVID TESTED + 10/08/19. MED HX: ASTHMA
[2019-10-25 19:39] VITALS: BP 134/89
--- NOTE | 2019-10-25 19:40 | NUR ---
Patient discharged with v/s stable. Written and verbal after care instructions given and explained. Patient alert, oriented and verbalized understanding of instructions. Ambulatory with steady gait. All questions addressed prior to discharge. ID band removed. Patient advised to follow up with PMD. Rx of codeine/promethazine syrup, prednisone given. Patient educated on indication of medication including possible reaction and side effects. Opportunity to ask questions provided and answered.
== END 2019-10-25 19:39 | disposition home or self-care (01) ==
LOC: MED 17:31 → EEVIPCON 17:31 → MED 19:39
DX: R51 Headache (principal); R06.02 Shortness of breath; M79.10 Myalgia, unspecified site; R43.8 Other disturbances of smell and taste; J45.909 Unspecified asthma, uncomplicated; I10 Essential (primary) hypertension; Z79.899 Other long term (current) drug therapy; Z88.1 Allergy status to other antibiotic agents; Z20.828 Contact with and (suspected) exposure to other viral communicable diseases
CPT/HCPCS: 71045; 99284; U0003

== ENCOUNTER 2020-01-31 17:21 | Emergency (ER) | payer OTHER, SELFPAY ==
[~2020-01-31] VITALS: Ht 162.6 cm; Wt 101.6 kg
[2020-01-31 17:48] VITALS: BP 145/84
--- NOTE | 2020-01-31 17:56 | NUR ---
AMB TO BED 03
[2020-01-31] MEDS ORDERED: ALBUTEROL 0.083% 2.5 MG/3 ML NEBU INH ONE (18:20)
[2020-01-31] MEDS ORDERED: predniSONE 20 MG TAB PO ONE (18:20)
[2020-01-31] MEDS ORDERED: IPRATROPIUM 0.02% 0.5 MG/2.5 ML NEBU INH ONE (18:20)
--- NOTE | 2020-01-31 18:22 | NUR ---
54 Y/O MALE PRESENTS TO ER WITH C/O SOB. 5/10 NON CARDIAC CHEST PAIN. PT STATES HE HAS BEEN HAVING ISSUES WITH HIS ASTHMA FOR THE PAST 2 WEEKS. PT STATES HIS NEBULIZER MACHINE IS BROKEN. BILATERAL LOBES HAVE AUDIBLE WHEEZING ON INSPIRATION. A&O X4, VSS, SPO2 97% RA, R/R EQUAL, AND UNLABORED. DENIES COUGH, FEVER, N/V/D, CHILLS. SIDE RAIL X1, BED IN LOW POSITION WILL CONTINUE TO MONITOR. ALLERGY: TETRACYCLINE PMH: ASTHMA, HTN
[2020-01-31 18:50] LABS: BASOPHILS # (AUTO) 0.1 K/uL (0.00-0.22); BASOPHILS % (AUTO) 1.2 % (0.0-2.0); EOSINOPHILS # (AUTO) 0.6 K/uL (0-0.4); HEMATOCRIT 42.4 % (36-52); LYMPHOCYTES # (AUTO) 1.5 K/uL (2.0-11.5); LYMPHOCYTES % (AUTO) 19.2 % (20.5-51.1); MEAN CORPUSCULAR HEMOGLOBIN 26 pg (27-31); MEAN CORPUSCULAR HGB CONC 33 g/dL (33-37); MEAN CORPUSCULAR VOLUME 79.6 fL (80-94); MONOCYTES # (AUTO) 0.8 K/uL (0.8-1.0); MONOCYTES % (AUTO) 10.4 % (1.7-9.3); NEUTROPHILS # (AUTO) 4.7 K/uL (1.8-7.7); NEUTROPHILS % (AUTO) 61.2 % (42.2-75.2); PLATELET COUNT (AUTO) 177 K/uL (140-450); RED BLOOD CELL COUNT(AUTO) 5.33 MIL/uL (4.20-6.10); RED CELL DISTRIBUTION WIDTH 14.4 % (11.6-13.7); WHITE BLOOD COUNT (AUTO) 7.7 K/uL (4.8-10.8)
[2020-01-31 19:09] LABS: ANION GAP 12.4 (8-16); CREATININE 1.4 mg/dL (0.6-1.3); POTASSIUM 3.4 mmol/L (3.5-5.1); TOTAL BILIRUBIN 0.2 mg/dL (0.0-1.0)
--- NOTE | 2020-01-31 19:26 | NUR ---
Maye jean in [facility] - 01/31/20 at 1926 [facility] RECEIVED REPORT FROM [facility] DOHERTY FOR CONTINUITY OF CARE.
--- NOTE | 2020-01-31 19:26 | NUR ---
RECEIVED REPORT FROM [facility] HELLER FOR CONTINUITY OF CARE.
--- NOTE | 2020-01-31 19:39 | NUR ---
Maye jean in ED - 01/31/20 at 1939 by BIGG PT TAKEN TO RAD VIA WHEELCHAIR.
--- NOTE | 2020-01-31 20:22 | NUR ---
COVID SWAB COLLECTED AND WALKED OVER TO LAB.
[2020-01-31 20:32] VITALS: BP 102/44
== END 2020-01-31 20:32 | disposition home or self-care (01) ==
LOC: MED 17:21
DX: J45.901 Unspecified asthma with (acute) exacerbation (principal); I10 Essential (primary) hypertension; Z88.1 Allergy status to other antibiotic agents; Z79.899 Other long term (current) drug therapy; Z20.828 Contact with and (suspected) exposure to other viral communicable diseases
CPT/HCPCS: 36415; 71045; 80053; 84484; 85025; 93005; 94640; 99285; J7512; J7613; J7644; Q0092; U0003

== ENCOUNTER 2020-03-16 05:22 | Emergency (ER) | payer OTHER, SELFPAY ==
[~2020-03-16] VITALS: Ht 162.6 cm; Wt 102.1 kg
[2020-03-16 05:30] VITALS: BP 166/90
--- NOTE | 2020-03-16 06:10 | NUR ---
SEEN AND EXAMINED BY AGUILAR , WITH ORDERS AND CARRIED OUT.
[2020-03-16] MEDS ORDERED: ALBUTEROL SULFATE/IPRATROPIU 3 ML SOL IH ONE (06:25)
[2020-03-16] MEDS ORDERED: methylPREDNISolone SS 125 MG/2 ML VIAL IM ONE (06:25)
--- NOTE | 2020-03-16 06:26 | NUR ---
PT TAKEN TO BED 11
--- NOTE | 2020-03-16 06:32 | NUR ---
PT MOVED TO OF
--- NOTE | 2020-03-16 06:35 | NUR ---
MEDICATED PER ERMDS ORDER, PATIENT TOLERATED WELL.
--- NOTE | 2020-03-16 06:38 | NUR ---
RT AT TENT GIVING BREATHING TREATMENT
--- NOTE | 2020-03-16 06:40 | NUR ---
Respiratory Therapist at bedside for respiratory intervention.
--- NOTE | 2020-03-16 06:40 | NUR ---
XRAY WAS DONE AT THE TENT.
[2020-03-16] MEDS ORDERED: ASPIRIN 325 MG TAB PO ONE (06:50)
--- NOTE | 2020-03-16 07:23 | NUR ---
RECEIVED REPORT FROM FRANCIE GARIBAY.
[2020-03-16 07:48] LABS: BASOPHILS % (AUTO) 0.2 % (0.0-2.0); EOSINOPHILS % (AUTO) 0.2 % (0.0-4.0); HEMATOCRIT 43.5 % (36-52); LYMPHOCYTES # (AUTO) 2.3 K/uL (2.0-11.5); LYMPHOCYTES % (AUTO) 16.4 % (20.5-51.1); MEAN CORPUSCULAR HEMOGLOBIN 26 pg (27-31); MEAN CORPUSCULAR HGB CONC 32 g/dL (33-37); MEAN CORPUSCULAR VOLUME 81.4 fL (80-94); MONOCYTES % (AUTO) 7.3 % (1.7-9.3); NEUTROPHILS # (AUTO) 10.5 K/uL (1.8-7.7); NEUTROPHILS % (AUTO) 75.9 % (42.2-75.2); PLATELET COUNT (AUTO) 159 K/uL (140-450); RED BLOOD CELL COUNT(AUTO) 5.35 MIL/uL (4.20-6.10); RED CELL DISTRIBUTION WIDTH 14.8 % (11.6-13.7); WHITE BLOOD COUNT (AUTO) 13.9 K/uL (4.8-10.8)
[2020-03-16 07:57] LABS: ANION GAP 9.4 (8-16); CARBON DIOXIDE 30.3 mmol/L (21-32); CREATININE 1.2 mg/dL (0.6-1.3); POTASSIUM 3.7 mmol/L (3.5-5.1)
[2020-03-16 08:02] LABS: ALBUMIN 3.5 g/dL (3.4-5.0); TOTAL BILIRUBIN 0.3 mg/dL (0.0-1.0)
--- NOTE | 2020-03-16 08:15 | NUR ---
AAOX4. DENIES PAIN AT THIS TIME. O2SAT 98% AT THISTIME.
--- NOTE | 2020-03-16 08:45 | NUR ---
Patient discharged with v/s stable. Written and verbal after care instructions given and explained. Patient alert, oriented and verbalized understanding of instructions. Ambulatory with steady gait. All questions addressed prior to discharge. ID band removed. Patient advised to follow up with PMD. Rx of PREDNISONE & ALBUTEROL given. Patient educated on indication of medication including possible reaction and side effects. Opportunity to ask questions provided and answered.
[2020-03-16 08:46] VITALS: BP 151/87
== END 2020-03-16 08:45 | disposition home or self-care (01) ==
LOC: MED 05:22
DX: J45.901 Unspecified asthma with (acute) exacerbation (principal)
CPT/HCPCS: 36415; 71045; 80053; 83880; 84484; 85025; 87426; 94640; 96372; 99285; J2930

== ENCOUNTER 2020-03-18 13:46 | Emergency (ER) | payer OTHER, SELFPAY ==
[~2020-03-18] VITALS: Ht 152.4 cm; Wt 102.1 kg
--- NOTE | 2020-03-18 13:48 | NUR ---
Patient ambulated to bed 9. RN evaluating patient at bedside.
[2020-03-18 13:57] VITALS: BP 170/79
--- NOTE | 2020-03-18 13:58 | NUR ---
54/M C/O MID CHEST PRESSURE AND SOB X 1 WEEK, WORSENED BY AMBULATION. MINIMAL SYMPTOMS AT REST. DENIES N/V. FOREHEAD MILDLY DIAPHORETIC. PT WAS SEEN HERE ON 03/16 AND D/C DX IS ASTHMA, PT ALSO HAS HX OF ASTHMA. COVID MANAS NEGATIVE ON 03/16/20. PT STATES HE USES BREATHING TX AT HOME AND WAS RX STERIODS FROM LAST VISIT BUT IS INEFFECTIVE. PT CONNECTED TO BEDSIDE MONITOR. HX- ASTHMA, HTN
--- NOTE | 2020-03-18 14:01 | NUR ---
EMT AT BEDSIDE FOR EKG
--- NOTE | 2020-03-18 14:56 | NUR ---
DR. SHEEHAN EVALUATING PT AT BEDSIDE
--- NOTE | 2020-03-18 15:16 | NUR ---
ELECTRICAL ELECTRONICS TECHNICIAN AND FINISH MENDER AT BEDSIDE
--- NOTE | 2020-03-18 15:18 | NUR ---
PT SWABBED FOR ABHI MALAGON, SAMPLE HANDED TO [employer] SAL[employer] CONSULTANT
[2020-03-18 15:37] LABS: BASOPHILS % (AUTO) 0.3 % (0.0-2.0); HEMATOCRIT 45.4 % (36-52); HEMOGLOBIN 14.7 g/dL (12.0-18.0); LYMPHOCYTES # (AUTO) 0.5 K/uL (2.0-11.5); LYMPHOCYTES % (AUTO) 3.9 % (20.5-51.1); MEAN CORPUSCULAR HEMOGLOBIN 26 pg (27-31); MEAN CORPUSCULAR HGB CONC 32 g/dL (33-37); MEAN CORPUSCULAR VOLUME 80.5 fL (80-94); MONOCYTES # (AUTO) 0.5 K/uL (0.8-1.0); MONOCYTES % (AUTO) 3.6 % (1.7-9.3); NEUTROPHILS % (AUTO) 92.2 % (42.2-75.2); PLATELET COUNT (AUTO) 179 K/uL (140-450); RED BLOOD CELL COUNT(AUTO) 5.63 MIL/uL (4.20-6.10); RED CELL DISTRIBUTION WIDTH 15.2 % (11.6-13.7); WHITE BLOOD COUNT (AUTO) 14.1 K/uL (4.8-10.8)
[2020-03-18 16:07] LABS: ALBUMIN 3.6 g/dL (3.4-5.0); ANION GAP 12.4 (8-16); CARBON DIOXIDE 29.9 mmol/L (21-32); CREATININE 1.5 mg/dL (0.6-1.3); POTASSIUM 4.3 mmol/L (3.5-5.1); TOTAL BILIRUBIN 0.4 mg/dL (0.0-1.0)
--- NOTE | 2020-03-18 16:51 | NUR ---
Patient discharged with v/s stable. Written and verbal after care instructions given and explained. Patient alert, oriented and verbalized understanding of instructions. Ambulatory with steady gait. All questions addressed prior to discharge. ID band removed. Patient advised to follow up with PMD. Rx of AZITHROMYCIN AND PREDNISONE given. Patient educated on indication of medication including possible reaction and side effects. Opportunity to ask questions provided and answered.
[2020-03-18 16:53] VITALS: BP 155/69
== END 2020-03-18 16:51 | disposition home or self-care (01) ==
LOC: MED 13:46
DX: J45.901 Unspecified asthma with (acute) exacerbation (principal); I10 Essential (primary) hypertension; Z88.1 Allergy status to other antibiotic agents; Z79.899 Other long term (current) drug therapy; Z20.828 Contact with and (suspected) exposure to other viral communicable diseases
CPT/HCPCS: 36415; 71045; 80053; 83880; 84484; 85025; 93005; 99285

== ENCOUNTER 2020-03-30 09:40 | Emergency (ER) | payer OTHER ==
[~2020-03-30] VITALS: Ht 160 cm; Wt 102.1 kg
[2020-03-30 09:58] VITALS: BP 162/105
--- NOTE | 2020-03-30 10:00 | NUR ---
54/M BIB SELF C/O SOB X 5 DAYS, CHEST PAIN 5/10 ONLY DURING COUGH .PMH- ASTHMA.
[2020-03-30] MEDS ORDERED: KETOROLAC 30 MG/ML VIAL IM ONE (10:30)
[2020-03-30] MEDS ORDERED: ALUMINUM HYD/MAG/SIMETHICONE 30 ML UDC PO ONE (10:30)
[2020-03-30 11:39] LABS: BASOPHILS % (AUTO) 0.2 % (0.0-2.0); EOSINOPHILS % (AUTO) 0.1 % (0.0-4.0); HEMATOCRIT 40.4 % (36-52); HEMOGLOBIN 13.3 g/dL (12.0-18.0); LYMPHOCYTES # (AUTO) 0.4 K/uL (2.0-11.5); LYMPHOCYTES % (AUTO) 3.2 % (20.5-51.1); MEAN CORPUSCULAR HEMOGLOBIN 27 pg (27-31); MEAN CORPUSCULAR HGB CONC 33 g/dL (33-37); MEAN CORPUSCULAR VOLUME 80.5 fL (80-94); MONOCYTES # (AUTO) 0.8 K/uL (0.8-1.0); NEUTROPHILS # (AUTO) 10.8 K/uL (1.8-7.7); NEUTROPHILS % (AUTO) 89.5 % (42.2-75.2); PLATELET COUNT (AUTO) 136 K/uL (140-450); RED BLOOD CELL COUNT(AUTO) 5.01 MIL/uL (4.20-6.10); WHITE BLOOD COUNT (AUTO) 12.1 K/uL (4.8-10.8)
[2020-03-30 11:45] LABS: ANION GAP 8.5 (8-16); CARBON DIOXIDE 31.8 mmol/L (21-32); CREATININE 1.2 mg/dL (0.6-1.3); POTASSIUM 3.3 mmol/L (3.5-5.1)
--- NOTE | 2020-03-30 13:42 | NUR ---
COVID SWAB COLLECTED
--- NOTE | 2020-03-30 14:00 | NUR ---
Patient discharged with v/s stable. Written and verbal after care instructions given and explained. Patient alert, oriented and verbalized understanding of instructions. Ambulatory with steady gait. All questions addressed prior to discharge. ID band removed. Patient advised to follow up with PMD. Rx of QVAR & LEVOFLOXACIN given. Patient educated on indication of medication including possible reaction and side effects. Opportunity to ask questions provided and answered.
[2020-03-30 14:01] VITALS: BP 127/68
== END 2020-03-30 14:00 | disposition home or self-care (01) ==
LOC: MED 09:40
DX: J40 Bronchitis, not specified as acute or chronic (principal); Z20.828 Contact with and (suspected) exposure to other viral communicable diseases; R05 Cough; M79.10 Myalgia, unspecified site; R06.02 Shortness of breath; J45.909 Unspecified asthma, uncomplicated; I10 Essential (primary) hypertension; Z98.890 Other specified postprocedural states; Z88.1 Allergy status to other antibiotic agents; Z79.899 Other long term (current) drug therapy
CPT/HCPCS: 71045; 80048; 84484; 85025; 85379; 93005; 99285; J1885; U0003

== ENCOUNTER 2020-04-02 15:05 | Inpatient (IN) | payer OTHER, SELFPAY ==
[~2020-04-02] VITALS: Ht 170.2 cm; Wt 101.6 kg
[2020-04-02 16:08] VITALS: BP 146/98
--- NOTE | 2020-04-02 16:12 | NUR ---
PT WAITING OUTSIDE IN COVID TENT FOR MSE.
--- NOTE | 2020-04-02 17:20 | NUR ---
swab for RSV, INFLUENZA A&B,urine sample sent to lab
[2020-04-02 17:22] LABS: BASOPHILS % (AUTO) 0.1 % (0.0-2.0); HEMATOCRIT 42.9 % (36-52); HEMOGLOBIN 13.8 g/dL (12.0-18.0); LYMPHOCYTES # (AUTO) 0.3 K/uL (2.0-11.5); LYMPHOCYTES % (AUTO) 3.1 % (20.5-51.1); MEAN CORPUSCULAR HEMOGLOBIN 26 pg (27-31); MEAN CORPUSCULAR HGB CONC 32 g/dL (33-37); MEAN CORPUSCULAR VOLUME 81.4 fL (80-94); MONOCYTES # (AUTO) 0.2 K/uL (0.8-1.0); MONOCYTES % (AUTO) 2.3 % (1.7-9.3); NEUTROPHILS # (AUTO) 8.1 K/uL (1.8-7.7); NEUTROPHILS % (AUTO) 94.5 % (42.2-75.2); PLATELET COUNT (AUTO) 152 K/uL (140-450); RED BLOOD CELL COUNT(AUTO) 5.26 MIL/uL (4.20-6.10); RED CELL DISTRIBUTION WIDTH 16.1 % (11.6-13.7); WHITE BLOOD COUNT (AUTO) 8.6 K/uL (4.8-10.8)
[2020-04-02 17:46] LABS: ALBUMIN 2.9 g/dL (3.4-5.0); ANION GAP 8.5 (8-16); CARBON DIOXIDE 34.7 mmol/L (21-32); CREATININE 1.6 mg/dL (0.6-1.3); POTASSIUM 4.2 mmol/L (3.5-5.1); TOTAL BILIRUBIN 0.2 mg/dL (0.0-1.0)
[2020-04-02 17:48] LABS: APPEARANCE,URINE CLEAR (CLEAR); BILIRUBIN,URINE NEGATIVE (NEGATIVE); BLOOD, URINE TRACE-I (NEGATIVE); COLOR,URINE YELLOW (YELLOW); LEUKOCYTE ESTERASE ,URINE NEGATIVE (NEGATIVE); NITRITE, URINE NEGATIVE (NEGATIVE); UGLUCOSE 3+ (NEGATIVE)
[2020-04-02 18:07] LABS: PROTHROMBIN TIME 9.3 secs (10.8-13.4)
[2020-04-02 18:28] LABS: C-REACTIVE PROTEIN QUANT 9.3 mg/dL (0.0-0.9)
[2020-04-02 18:28] LABS: RSV NEGATIVE (NEGATIVE)
[2020-04-02 18:34] LABS: LACTATE DEHYDROGENASE 410 U/L (85-227)
--- NOTE | 2020-04-02 19:35 | NUR ---
ekg performed in tent with screens. ekg read sinus rhythm @ 90
[2020-04-02] MEDS ORDERED: ALBUTEROL HFA MDI 90 MCG/ACTUATION 8 GM INH PRN (20:10)
[2020-04-02] MEDS ORDERED: ONDANSETRON 4 MG/2 ML VIAL IM/IVP PRN (20:10)
[2020-04-02] MEDS ORDERED: DOCUSATE SODIUM 100 MG GELCAP PO PRN (20:10)
[2020-04-02] MEDS ORDERED: POTASSIUM CHLORIDE 10 MEQ TABER PO PRN (20:10)
[2020-04-02 20:15] LABS: RBC,URINE 0-5 /HPF (0-5); WBC,URINE 0-5 /HPF (0-5)
[2020-04-02 21:41] LABS: CHOL/HDL RATIO 2.3 (1-4.5); FREE T4 (FREE THYROXINE) 0.96 ng/dL (0.76-1.46); MAGNESIUM 1.7 mg/dL (1.8-2.4); PHOSPHORUS 2.9 mg/dL (2.5-4.9); THYROID STIMULATING HORMONE 0.39 uIU/mL (0.34-3.74)
[2020-04-03] MEDS ORDERED: cefTRIAXone 1,000 MG VIAL ONE (03:28)
--- NOTE | 2020-04-03 04:50 | NUR ---
PT MOVED TO BED 11
--- NOTE | 2020-04-03 05:00 | NUR ---
PT CONNECTED TO THE STORE MANAGER. PT IS NOT IN ANY DISTRESS AT THIS TIME. PT IS ON 2 L NC. BED IS LOCKED AND IN LOWEST POSITION. CALL LIGHT WITHIN REACH.
[2020-04-03] MEDS: NACL 0.9% 1,000 ML IV SCH ×2 (05:22→16:32)
--- NOTE | 2020-04-03 06:00 | NUR ---
PT IS ASLEEP. VISIBLE RISE AND FALL OF CHEST NOTED. CONNECTED TO THE HOUSEHOLD APPLIANCE REPAIRER. PT IS NOT IN ANY DISTRESS AT THIS TIME. PT IS ON 2 L NC. BED IS LOCKED AND IN LOWEST POSITION. CALL LIGHT WITHIN REACH.
--- NOTE | 2020-04-03 07:00 | NUR ---
PT IS ASLEEP. VISIBLE RISE AND FALL OF CHEST NOTED. CONNECTED TO THE BRAND AMBASSADOR. PT IS NOT IN ANY DISTRESS AT THIS TIME. PT IS ON 2 L NC. BED IS LOCKED AND IN LOWEST POSITION. CALL LIGHT WITHIN REACH.
--- NOTE | 2020-04-03 07:05 | NUR ---
PATIENT HAS BEEN SCREENED AND CATEGORIZED MODERATE NUTRITION RISK. PATIENT WILL BE SEEN WITHIN 3-5 DAYS OF ADMISSION. 04/05/20 - 04/07/20 ROSANNE BRITTON MBA, RD
--- NOTE | 2020-04-03 07:20 | NUR ---
REPORT GIVEN TO PHOENIX MICHELE FOR TRANSFER OF CARE AT THIS TIME.
[2020-04-03] MEDS ORDERED: remdesivir CLINICAL MONITORING 1 EA MISC MC PRN (08:00)
[2020-04-03] MEDS ORDERED: REMDESIVIR (EUA) 200 MG in NACL 0.9% 100 ML IV SCH (09:00)
[2020-04-03] MEDS: COMMUNICATION ORDER MC SCH (09:00)
--- NOTE | 2020-04-03 09:04 | NUR ---
Patient will be admitted to care of . Admited to TELE. Will go to room. Belongings list completed. Report to
[2020-04-03 09:20] LABS: HEMATOCRIT 40.2 % (36-52); LYMPHOCYTES # (AUTO) 0.9 K/uL (2.0-11.5); LYMPHOCYTES % (AUTO) 11.9 % (20.5-51.1); MEAN CORPUSCULAR HEMOGLOBIN 26 pg (27-31); MEAN CORPUSCULAR HGB CONC 33 g/dL (33-37); MONOCYTES # (AUTO) 0.2 K/uL (0.8-1.0); NEUTROPHILS # (AUTO) 6.6 K/uL (1.8-7.7); NEUTROPHILS % (AUTO) 85.1 % (42.2-75.2); PLATELET COUNT (AUTO) 179 K/uL (140-450); RED BLOOD CELL COUNT(AUTO) 4.96 MIL/uL (4.20-6.10); RED CELL DISTRIBUTION WIDTH 15.8 % (11.6-13.7); WHITE BLOOD COUNT (AUTO) 7.8 K/uL (4.8-10.8)
[2020-04-03 09:39] LABS: ALBUMIN 2.7 g/dL (3.4-5.0); ANION GAP 10.1 (8-16); CARBON DIOXIDE 32.2 mmol/L (21-32); CREATININE 1.3 mg/dL (0.6-1.3); POTASSIUM 3.3 mmol/L (3.5-5.1); TOTAL BILIRUBIN 0.2 mg/dL (0.0-1.0)
[2020-04-03 11:00] VITALS: BP 116/57
--- NOTE | 2020-04-03 11:00 | NUR ---
RECEIVED REPORT FROM PHOENIX ZHOU FOR CONTINUITY OF CARE.
--- NOTE | 2020-04-03 11:05 | NUR ---
ADMITTED A MALE 54 Y/O FROM ER VIA GURNEY WITH THE C/O SOB FOR 3 DAYS. PATIENT ALERT AWAKE ORIENTED X4, NOT IN DISTRESS NOTED. ON RA SATURATION 95%. PATIENT NOTICED TO HAVE SOB PUT ON 2L NC, SATURATION ON 97%. DENIES PAIN, SKIN INTACT. WITH IVF ON GOING AND INFUSING WELL. ISOLATION PROTOCOL INITIATED. NEEDS ATTENDED. WILL CONTINUE TO MONITOR.
--- NOTE | 2020-04-03 11:39 | NUR ---
SOCIAL WORK NOTE: SW ATTEMPTED TO COMPLETE ASSESSMENT. SW LEFT VM WITH PATIENT'S , SHAE SANDERS [phone].
[2020-04-03] MEDS: ASCORBIC ACID 500 MG TAB PO SCH (11:49)
[2020-04-03] MEDS: AZITHROMYCIN 250 MG TAB PO SCH (11:49)
[2020-04-03] MEDS: ZINC SULF 220 MG CAP PO SCH (11:50)
[2020-04-03] MEDS: PANTOPRAZOLE 40 MG TABEC PO SCH (11:50)
--- NOTE | 2020-04-03 14:24 | NUR ---
DC PLANNIN YRS OLD MALE PATIENT WAS ADMITTED FROM HOME WITH A DX OF HYPOXIA, PNEUMONIA COVID POSITIVE. PT HAS A HX OF ASTHMA. CXR SHOWED MILD CENTRAL PULMONARY VASCULAR CONGESTION. PT WAS TESTED COVID POSITIVE LAST WEEK. URINE AND BLOOD CULTURE PENDING. STARTED COVID PROTOCOL REMDESEVIR IV, AZITHROMYCIN AND ROCEPHIN IV ABX. CONSULTED WITH PULMO AND ID. DC PLAN TO GO HOME WHEN STABLE . CM TO FOLLOW Addendum: 04/06/20 at 1127 by Sindy Dahl RN DC PLANNING: FAXED HOME O2 TO PT'S INSURANCE [facility]. CALLED [facility] [phone] SPOKE WITH KILO AT [facility] THEY ARE CONTRACTED WITH [employer] AND WILL REVIEW AND CALL BACK CM TO FOLLOW Addendum: 04/06/20 at 1650 by Sindy Dahl RN DC PLANNING:' PT IS WITH [employer] EPO NOT COVERED WITH DME SPOKE WITH PT'S SHAE NOT WILLING TO PAY AND PT STATED HE DOESN'T HAVE ANY MONEY TO PAY NOTIFIED DR LIN. NAIK TO FOLLOW. Addendum: 04/07/20 at 1133 by Sindy Dahl RN DC PLANNING: RECEIVED A CALL FROM [employer] SPOKE WITH CM STATED CONTRACTED WITH [employer] [phone], [facility] [phone] AND [facility] [phone] FAXED TO [employer] NAIK TO FOLLOW Addendum: 04/07/20 at 1134 by Sindy Dahl RN DC PLANNING CM FROM [facility] [phone] Addendum: 04/07/20 at 1140 by Tracy Cole CM ESA ORTEGA: SPOKE TO AT [facility] PHONE CALL WAS RE-DIRECTED BECAUSE [facility] PHONE [facility]. THEY ARE NOT ABLE TO FIND THIS PATIENT IN THEIR SYSTEM. Addendum: 04/07/20 at 1313 by Tracy Cole CM EAS ORTEGA: RECEIVED A PHONE CALL FROM RANDALL AT [facility] [phone] SHE STATED THAT THEY HAVE RECEIVED THE ORDER FOR HOME OXYGEN HOWEVER THEY CAN NOT FULFILL IT AT THIS TIME. THEY ARE ONLY ABLE TO PROVIDE OXYGEN FOR [facility] PATIENTS. FAXED ORDER TO [facility] AND SPOKE TO MONICA [phone] SHE RECEIVED ORDER AND WILL RUN ELIGIBILITY Addendum: 04/07/20 at 1505 by Tracy Cole CM ESA ORTEGA: FOLLOWED UP WITH MONICA AT [facility] SHE STATED THAT THEY ARE REALLY BUSY AND STILL RUNNING ELIGIBILITY Addendum: 04/07/20 at 1549 by Tracy Cole CM ESA ORTEGA: FOLLOWED UP WITH MONICA, THEY WERE ABLE TO RUN ELIGIBILITY AND WORKING ON ETA. SHE WILL CALL ME BACK ONCE SHE HAS AN ETA. Addendum: 04/07/20 at 1648 by Tracy Pimenteleda CM DC SHANNON: SPOKE TO MONICA AT [facility] [phone] AGAIN. SHE STATED THAT THEY NEEDED A SIGNED RX. DR. COOPER SIGNED THE RX AND I FAXED IT BACK Addendum: 04/07/20 at 1649 by Tracy Cole CM DC SHANNON: MONICA AT [facility] STATED THAT THE HOME O2 WILL BE DELIVERED TONIGHT. Addendum: 04/07/20 at 1654 by Tracy Pimenteleda CM ESA ORTEGA: ETA IS BETWEEN 6:00PM -8:00 PM. NOTIFIED PHOENIX JOEL.
[2020-04-03] MEDS: ACETAMINOPHEN 325 MG TAB PO PRN ×2 (16:41→23:01)
--- NOTE | 2020-04-03 16:41 | NUR ---
PATIENT MEDICATED WITH TYLENOL FOR HEADACHE. NEEDS ATTENDED. WILL CONTINUE TO MONITOR.
--- NOTE | 2020-04-03 18:43 | NUR ---
PATIENT AMBULATE TO THE BATHROOM WITH O2, WITH SOB PUT OXYGEN TO 4L NASAL CANNULA. SATURATION 95%.
--- NOTE | 2020-04-03 19:10 | NUR ---
RECEIVED BEDSIDE REPORT FROM DAY SHIFT NURSE. PATIENT IS AWAKE, RESPIRATION EVEN UNLABORED ON 4L NC O2. NO DISTRESS NOTED. SKIN IS WARM AND DRY. IV PATENT AND INTACT. PLAN OF CARE WAS DISCUSSED. ALL SAFETY MEASURES IN PLACE. BED IS AT LOW POSITION. CALL LIGHT WITHIN REACH. WILL CONTINUE TO MONITOR.
[2020-04-03 20:00] VITALS: BP 125/61
--- NOTE | 2020-04-03 20:45 | NUR ---
ALL SCHEDULED MEDS WERE GIVEN PER ORDER. NO ASE NOTED. WILL CONTINUE TO MONITOR.
[2020-04-03] MEDS: ZOLPIDEM 5 MG TAB PO PRN (22:56)
--- NOTE | 2020-04-03 23:01 | NUR ---
PATIENT IS COMPLAINING OF HEADACHE AND UNABLE TO FALL ASLEEP. PRN TYLENOL AND AMBIEN GIVEN PER ODER. WILL CONTINUE TO MONITOR.
[2020-04-04] VITALS: BP 155/70
--- NOTE | 2020-04-04 01:59 | NUR ---
CHECKED PATIENT. PATIENT TOOK OFF HIS OXYGEN. PER PATIENT IS TOO MUCH OXYGEN AND MAKING HIS NOSE DRY. EXPLAINED THE PURPOSE OF THE OXYGEN. PATIENT VERBALIZE UNDERSTANDING WILL CONTINUE TO MONITOR.
--- NOTE | 2020-04-04 03:34 | NUR ---
CHECKED ON PATIENT. PATIENT SLEEPING RESPIRATION EVEN UNLABORED ON 4L NC O2. NO DISTRESS NOTED. WILL CONTINUE TO MONITOR
[2020-04-04] MEDS: guaiFENesin DM 200/20 MG-10 ML 10 ML UDC PO PRN (05:42)
--- NOTE | 2020-04-04 05:42 | NUR ---
PATIENT COMPLAINED OF COUGH, PRN COUGH MEDICINE GIVEN PER ORDER. WILL CONTINUE TO MONITOR.
[2020-04-04] MEDS: NACL 0.9% 1,000 ML IV SCH ×2 (05:58→22:10)
--- NOTE | 2020-04-04 07:31 | NUR ---
ENDORSED PATIENT TO DAY SHIFT NURSE FOR CONTINUITY OF CARE.
[2020-04-04 08:07] LABS: T4 (THYROXINE) 6.3 ug/dL (4.5-12.0)
--- NOTE | 2020-04-04 08:26 | NUR ---
RECEIVED PATIENT IN BED RESTING COMFORTABLY, PRESENTS CALM AND COOPERATIVE. ABLE TO MAKE NEEDS KNOWN. NO C/O PAIN OR DISCOMFORT. RESPIRATIONS ARE NON-LABORED. SKIN IS CLEAN, WARM AND DRY TO TOUCH. IV ACCESS IS PATENT, DRY AND INTACT. BED IS LOCKED IN LOWEST POSITION, CALL LIGHT IN REACH. NURSE TO CONTINUE TO MONITOR FOR CHANGES IN STATUS.
[2020-04-04 08:39] LABS: BASOPHILS % (AUTO) 0.1 % (0.0-2.0); HEMATOCRIT 37.4 % (36-52); HEMOGLOBIN 12.4 g/dL (12.0-18.0); LYMPHOCYTES # (AUTO) 0.5 K/uL (2.0-11.5); LYMPHOCYTES % (AUTO) 9.5 % (20.5-51.1); MEAN CORPUSCULAR HEMOGLOBIN 27 pg (27-31); MEAN CORPUSCULAR HGB CONC 33 g/dL (33-37); MEAN CORPUSCULAR VOLUME 80.6 fL (80-94); MONOCYTES # (AUTO) 0.2 K/uL (0.8-1.0); MONOCYTES % (AUTO) 4.3 % (1.7-9.3); NEUTROPHILS # (AUTO) 4.4 K/uL (1.8-7.7); NEUTROPHILS % (AUTO) 86.1 % (42.2-75.2); PLATELET COUNT (AUTO) 173 K/uL (140-450); RED BLOOD CELL COUNT(AUTO) 4.64 MIL/uL (4.20-6.10); RED CELL DISTRIBUTION WIDTH 15.4 % (11.6-13.7); WHITE BLOOD COUNT (AUTO) 5.1 K/uL (4.8-10.8)
[2020-04-04] MEDS: COMMUNICATION ORDER MC SCH (08:45)
[2020-04-04 08:55] LABS: ALBUMIN 2.4 g/dL (3.4-5.0); ANION GAP 7.8 (8-16); CARBON DIOXIDE 34.3 mmol/L (21-32); CREATININE 1.1 mg/dL (0.6-1.3); POTASSIUM 4.1 mmol/L (3.5-5.1); TOTAL BILIRUBIN 0.2 mg/dL (0.0-1.0)
[2020-04-04] MEDS: AZITHROMYCIN 250 MG TAB PO SCH (09:11)
[2020-04-04] MEDS: ZINC SULF 220 MG CAP PO SCH (09:13)
[2020-04-04] MEDS: PANTOPRAZOLE 40 MG TABEC PO SCH (09:14)
[2020-04-04] MEDS: ASCORBIC ACID 500 MG TAB PO SCH (09:14)
--- NOTE | 2020-04-04 16:09 | NUR ---
PATEINT SITTING UP AT SIDE OF BED, C/O SOB, PATEINT ON 4LPM, O2 SATURATIONS IS AT 91% AND DESATURATION AT 86%-87% WITH EXCERTION. NURSE NOTIFIED RESPIRATORY THERAPIST FOR PRN BREATHING TREATMENT. NURSE WILL MONITOR FOR CHANGES IN STATUS
--- NOTE | 2020-04-04 18:55 | NUR ---
PATIENT RESTING COMFORTABLY, NO C/O PAIN OR DISCOMFORT. RESPIRATIONS ARE NON-LABORED. SKIN IS CLEAN, WARM AND DRY TO TOUCH. IV ACCESS IS PATENT, DRY AND INTACT. BED IS LOCKED IN LOWEST POSITION, CALL LIGHT IN REAC. PATIENT ENDORSED TO FISH CLEANER MACHINE TENDER NURSE.
--- NOTE | 2020-04-04 19:00 | NUR ---
RECD. RESTING IN BED, AWAKE, A/OX4, OBESE. WITH SOB ON EXERTION. ON 02 AT 4 LITERS VIA N/C, O2 SATURATION, 89%. RT ON DUTY STATED STILL OK. ON DROPLET PRECAUTION. INSTRUCTED TO SLEEP NOT IN SUPINE BUT EXTREME RIGHT OR LEFT TO IMPROVE 02 SATURATION IF HE CANNOT SLEEP ON PRONE POSITION. PLAN OF CARE DISCUSSED WITH PHOENIX SALAZAR TO THE PATIENT. VERBALIZED UNDERSTANDING. DENIES PAIN 0/10.
--- NOTE | 2020-04-04 20:30 | NUR ---
AUTOMATIC CASTING MACHINE OPERATOR CALLED, ORDER FOR FROZEN PLASMA ORDERED TODAY BY , MAY TAKE 5 TO 7 DAYS TO BE AVAILABLE, WILL CALL NURSE WHEN IT IS AVAILABLE AND READY.
--- NOTE | 2020-04-04 21:00 | NUR ---
DUE MEDICATION FOR THE NIGHT GIVEN.
--- NOTE | 2020-04-05 | NUR ---
LAYING ON HIS RIGHT SIDE, SLEEPING IN BED. NO SOB NOTED.
[2020-04-05] MEDS: ZOLPIDEM 5 MG TAB PO PRN ×2 (00:41→21:32)
--- NOTE | 2020-04-05 00:41 | NUR ---
AWAKE, IN BED. UNABLE TO SLEEP.MEDICATED WITH AMBIEN PER MD ORDER.
[2020-04-05] MEDS: guaiFENesin DM 200/20 MG-10 ML 10 ML UDC PO PRN (00:42)
--- NOTE | 2020-04-05 01:30 | NUR ---
SLEEPING IN BED, NO SOB NOTED.
--- NOTE | 2020-04-05 02:00 | NUR ---
PREPARED SET UP FOR PLASMA INFUSION BUT PATIENT HAS NOT SIGN THE CONSENT, DENTAL OFFICE RECEPTIONIST SAID SHE CANNOT GIVE TH PLASMA IF THERE IS NO MD SIGNATURE IN THE CONSENT.
--- NOTE | 2020-04-05 04:00 | NUR ---
SIGNED CONSENT FOR CONVALESCENT PLASMA.
--- NOTE | 2020-04-05 06:00 | NUR ---
STATED FEELING NERVOUS DURING THE NIGHT, ADVISED TO TRY TO RELAX, WILL ENDORSE TO AM NURSE TO INFORM MD PATIENT WANTS MEDICATION FOR ANXIETY.
[2020-04-05 07:00] LABS: BASOPHILS % (AUTO) 0.1 % (0.0-2.0); HEMATOCRIT 36.5 % (36-52); HEMOGLOBIN 11.8 g/dL (12.0-18.0); LYMPHOCYTES # (AUTO) 0.6 K/uL (2.0-11.5); LYMPHOCYTES % (AUTO) 10.6 % (20.5-51.1); MEAN CORPUSCULAR HEMOGLOBIN 26 pg (27-31); MEAN CORPUSCULAR HGB CONC 33 g/dL (33-37); MEAN CORPUSCULAR VOLUME 80.8 fL (80-94); MONOCYTES # (AUTO) 0.4 K/uL (0.8-1.0); NEUTROPHILS # (AUTO) 4.3 K/uL (1.8-7.7); NEUTROPHILS % (AUTO) 81.3 % (42.2-75.2); PLATELET COUNT (AUTO) 190 K/uL (140-450); RED BLOOD CELL COUNT(AUTO) 4.52 MIL/uL (4.20-6.10); RED CELL DISTRIBUTION WIDTH 15.1 % (11.6-13.7); WHITE BLOOD COUNT (AUTO) 5.3 K/uL (4.8-10.8)
--- NOTE | 2020-04-05 07:00 | NUR ---
CONDITION REMAIN STABLE. WILL ENDORSE TO AM SHIFT NURSE FOR CONTINUITY OF CARE.
[2020-04-05 07:44] LABS: ALBUMIN 2.4 g/dL (3.4-5.0); ANION GAP 9.2 (8-16); CARBON DIOXIDE 34.4 mmol/L (21-32); CREATININE 0.9 mg/dL (0.6-1.3); POTASSIUM 3.6 mmol/L (3.5-5.1); TOTAL BILIRUBIN 0.2 mg/dL (0.0-1.0)
[2020-04-05 07:55] LABS: ALBUMIN 2.4 g/dL (3.4-5.0); TOTAL BILIRUBIN 0.1 mg/dL (0.0-1.0)
[2020-04-05 08:00] VITALS: BP 122/91
[2020-04-05] MEDS: PANTOPRAZOLE 40 MG TABEC PO SCH (08:29)
[2020-04-05] MEDS: AZITHROMYCIN 250 MG TAB PO SCH (08:29)
[2020-04-05] MEDS: ASCORBIC ACID 500 MG TAB PO SCH (08:29)
[2020-04-05] MEDS: ZINC SULF 220 MG CAP PO SCH (08:29)
--- NOTE | 2020-04-05 08:43 | NUR ---
SCHEDULED MORNING MEDICATIONS GIVEN, EDUCATIONS PROVIDED. V/S CHECKED. PATIENT SITTING AT THE SIDE OF THE BED HAVING BREAKFAST. O2 SAT 95% WITH 4L NC. PATIENT STATED HAS ANXIETY, NO ANTI ANXIETY MEDICATIONS ON FILE. WILL INFORM MD. SAFETY MEASURES IN PLACE, WILL CONTINUE TO MONITOR.
[2020-04-05] MEDS: COMMUNICATION ORDER MC SCH (09:00)
--- NOTE | 2020-04-05 10:51 | NUR ---
DR. COOPER MADE AWARE PATIENT HAS ANXIETY. DR. COOPER STATED THAT HE WILL PUT NEW ORDER. WILL FOLLOW UP.
[2020-04-05] MEDS: LORazepam 2 MG/ML VIAL IVP PRN (11:04)
--- NOTE | 2020-04-05 11:05 | NUR ---
ATIVAN GIVEN VIA IVP FOR ANXIETY, EDUCATION PROVIDED, PATIENT TOLERATED WELL. PT SITTING AT THE SIDE OF THE BED. ENCOURAGED PATIENT TO TAKE DEEP BREATH AND RELAXATION TECHNIQUES. VERBALIZED UNDERSTANDING. WILL CONTINUE TO MONITOR.
[2020-04-05] MEDS: CHLORHEXADINE GLUC 2% CLOTH TP SCH (12:25)
[2020-04-05] MEDS: MUPIROCIN CA NASAL 2% 1GM TUBE NS SCH (12:25)
--- NOTE | 2020-04-05 13:02 | NUR ---
PATIENT IS CALM RESTING IN BED. ENCOURAGED PATIENT TO TAKE DEEP BREATH AND USE INCENTIVE SPIROMETER. NO ACUTE DISTRESS NOTED. WILL CONTINUE TO MONITOR.
[2020-04-05] MEDS: REMDESIVIR (EUA) 100 MG in NACL 0.9% 100 ML IV SCH (13:35)
[2020-04-05] MEDS: NACL 0.9% 1,000 ML IV SCH (14:43)
--- NOTE | 2020-04-05 15:13 | NUR ---
PATIENT RESTING IN BED WITH NO ACUTE DISTRESS. O2 SAT 95% WITH 4L NC. WILL CONTINUE TO MONITOR.
[2020-04-05 16:00] VITALS: BP 142/93
--- NOTE | 2020-04-05 19:18 | NUR ---
ENDORSED PATIENT TO SALES OUTFITTER RN FOR CONTINUITY OF CARE. PATIENT IN STABLE CONDITION WITH 4L NC.
--- NOTE | 2020-04-05 19:30 | NUR ---
RECEIVED REPORT OF PT IN STABLE CONDITION.RESP UNLABORED W/O2 AT 4L/NC.LUNGS DIMINISHED.IVF INFUSING WELL.NO C/O PAIN NOW.CALL LIGHT IN REACH.WILL CONTINUE MONITORING.
[2020-04-06] VITALS: BP 142/93
[2020-04-06] MEDS: LORazepam 2 MG/ML VIAL IVP PRN ×2 (04:57→23:55)
--- NOTE | 2020-04-06 07:10 | NUR ---
RECEIVED PATIENT FROM NIGHT NURSE. PATIENT IN BED AWAKE AND ALERT. ENCOURAGED TO KEEP OXYGEN ON. PATIENT VERBALIZED UNDERSTANDING. RESP EVEN AND UNLABORED ON 4L NC. NO ACUTE S/S DISTRESS. DENIED OF PAIN. HOB ELEVATED. DROPLET PRECAUTION OBSERVED. SAFETY MEASURES IN PLACE. CALL LIGHT WITHIN REACH. WILL CONTINUE TO MONITOR.
[2020-04-06 08:00] VITALS: BP 117/75
--- NOTE | 2020-04-06 08:03 | NUR ---
SLEPT WELL.RESP.IS UNLABORED W/O2.IVF IS IN PROGRESS.ENDORSED TO AM RN IN STABLE CONDITION.
[2020-04-06 08:14] LABS: ALBUMIN 2.8 g/dL (3.4-5.0); BILIRUBIN,DIRECT 0.1 mg/dL (0.0-0.3); TOTAL BILIRUBIN 0.2 mg/dL (0.0-1.0)
[2020-04-06] MEDS: COMMUNICATION ORDER MC SCH (09:00)
[2020-04-06] MEDS ORDERED: PRED20TA5 PO (09:23)
[2020-04-06] MEDS ORDERED: PRON INH (09:23)
[2020-04-06] MEDS ORDERED: APIX2.5 PO (09:24)
[2020-04-06] MEDS ORDERED: AZIT250T3 PO (09:24)
--- NOTE | 2020-04-06 10:40 | NUR ---
PATIENT IN BED AWAKE AND ALERT. RESP EVEN AND UNLABORED ON 4L NC, O2SAT 95%. C/O HEADACHE AND WILL MEDICATE APPROPRIATELY. PATIENT ABLE TO MAKE NEEDS KNOWN AND FOLLOW COMMANDS. NO IV ACCESS AT THIS TIME. MORNING ROUTINE MEDICATIONS GIVEN. PATIENT TOLERATED WELL. HOB ELEVATED. CALL LIGHT WITHIN REACH. WILL CONTINUE TO MONITOR.
[2020-04-06] MEDS: PANTOPRAZOLE 40 MG TABEC PO SCH (10:43)
[2020-04-06] MEDS: ZINC SULF 220 MG CAP PO SCH (10:43)
[2020-04-06] MEDS: ASCORBIC ACID 500 MG TAB PO SCH (10:44)
[2020-04-06] MEDS: NACL 0.9% 1,000 ML IV SCH (10:44)
[2020-04-06] MEDS: AZITHROMYCIN 250 MG TAB PO SCH (10:44)
--- NOTE | 2020-04-06 10:45 | NUR ---
04/06/20 RD INITIAL ASSESSMENT COMPLETED. PLEASE REFER TO NUTRITION ASSESSMENT UNDER CARE ACTIVITY FOR ESTIMATED NUTRITIONAL NEEDS. RD RECOMMENDATIONS: 1. RECOMMEND CONTINUE REGULAR DIET. 2. F/U 3-5 DAYS; MODERATE RISK ROSANNE BRITTON MBA, RD
[2020-04-06] MEDS: ACETAMINOPHEN 325 MG TAB PO PRN (11:03)
--- NOTE | 2020-04-06 12:12 | NUR ---
PATIENT IN BED RESTING, EYES CLOSED. TYLENOL GIVEN PRIOR FOR HEADACHE AND IS EFFECTIVE. RESP EVEN AND UNLABORED ON 4L NC. NO ACUTE S/S DISTRESS. CALL LIGHT WITHIN REACH. WILL CONTINUE TO MONITOR.
[2020-04-06] MEDS: MUPIROCIN CA NASAL 2% 1GM TUBE NS SCH (14:53)
[2020-04-06] MEDS: REMDESIVIR (EUA) 100 MG in NACL 0.9% 100 ML IV SCH (14:53)
[2020-04-06] MEDS: CHLORHEXADINE GLUC 2% CLOTH TP SCH (14:53)
--- NOTE | 2020-04-06 14:54 | NUR ---
IV INSERTION TO LEFT HAND 24G USING ASEPTIC TECHNIQUE. ATIVAN GIVEN FOR ANXIETY. RESP EVEN AND UNLABORED ON 4L NC, O2 SAT 92%. PATIENT SEEMED ANXIOUS TO GO HOME. WHEEZING NOTED. RT CALLED. NO ACUTE S/S DISTRESS AT THIS TIME. CALL LIGHT WITHIN REACH. WILL CONTINUE TO MONITOR.
[2020-04-06 16:00] VITALS: BP 135/94
--- NOTE | 2020-04-06 16:41 | NUR ---
ANNOUNCER FAXED O2 REQUEST TO PT INSURANCE. AWAITING FOR APPROVAL. PER DR COOPER NOTE, PATIENT WAS WILLING TO PAY FOR HIS OWN OXYGEN. PATIENT WAS ASKED AND PT STATED HE DOESN'T HAVE A JOB RIGHT NOW AND HE CAN'T PAY FOR THE OXYGEN. CM MADE AWARE AND WILL FOLLOW UP TUESDAY. PATIENT VERBALIZED UNDERSTANDING.
--- NOTE | 2020-04-06 17:35 | NUR ---
PATIENT SITTING BY BEDSIDE TALKING TO FAMILY. RESP EVEN AND UNLABORED ON 4L NC, O2SAT 94%. NO ACUTE S/S DISTRESS. CALL LIGHT WITHIN REACH. WILL CONTINUE TO MONITOR.
--- NOTE | 2020-04-06 19:25 | NUR ---
ENDORSED PATIENT TO NIGHT NURSE. PATIENT IN STABLE CONDITION.
--- NOTE | 2020-04-06 19:30 | NUR ---
AWAKE,ALERT AND ORIENTED.RESP.UNLABORED W/O2.IVF INFUSING WELL.LUNGS DIMINISHED.NO C/O PAIN AT THIS TIME.WILL CONT.MONITORING.
[2020-04-07] VITALS: BP 126/77
--- NOTE | 2020-04-07 01:00 | NUR ---
ATIVAN GIVEN FOR ANXIETY.SLEEPING NOW.
[2020-04-07] MEDS: HYDROcodone/APAP 7.5/325 MG 1 TAB PO PRN ×2 (04:50→18:56)
--- NOTE | 2020-04-07 06:17 | NUR ---
HAD C/O PAIN.PO MED GIVEN.WILL REASSESS PER PROTOCOL.NO DISTRESS NOTED.CALL LIGHT IN REACH.
--- NOTE | 2020-04-07 07:05 | NUR ---
REC'D REPORT FROM METAL REFINER NURSE, PT ON NS 60ML/HR. 4L NC, CALL LIGHT WITHIN REACH. BED LOWEST POSITION. PT STABLE
[2020-04-07 08:00] VITALS: BP 146/93
[2020-04-07] MEDS: ZINC SULF 220 MG CAP PO SCH (08:19)
[2020-04-07] MEDS: AZITHROMYCIN 250 MG TAB PO SCH (08:19)
[2020-04-07] MEDS: PANTOPRAZOLE 40 MG TABEC PO SCH (08:19)
[2020-04-07] MEDS: ASCORBIC ACID 500 MG TAB PO SCH (08:19)
[2020-04-07] MEDS: COMMUNICATION ORDER MC SCH (09:00)
[2020-04-07 09:01] LABS: ALBUMIN 2.5 g/dL (3.4-5.0); BILIRUBIN,DIRECT 0.1 mg/dL (0.0-0.3); TOTAL BILIRUBIN 0.2 mg/dL (0.0-1.0)
[2020-04-07] MEDS: LORazepam 2 MG/ML VIAL IVP PRN (11:19)
--- NOTE | 2020-04-07 11:25 | NUR ---
ADMINISTERED 1MG ATIVAN D/T PT C/O EXTREME ANXIETY. PT TOLERATED PROCEDURE WELL
[2020-04-07] MEDS: CHLORHEXADINE GLUC 2% CLOTH TP SCH (12:00)
[2020-04-07] MEDS: MUPIROCIN CA NASAL 2% 1GM TUBE NS SCH (12:51)
[2020-04-07] MEDS: REMDESIVIR (EUA) 100 MG in NACL 0.9% 100 ML IV SCH (12:52)
[2020-04-07] MEDS: NACL 0.9% 1,000 ML IV SCH ×2 (12:53→16:50)
[2020-04-07 16:00] VITALS: BP 146/77
--- NOTE | 2020-04-07 17:10 | NUR ---
REC'D CALL FROM [employer]ENTS SUPERVISOR, PATIENT'S OXYGEN WILL BE DELIVERED BETWEEN 6:00PM AND 8:00PM TODAY. PT INFORMED. OXYGEN COMPANY: [employer]
[2020-04-07 19:21] VITALS: BP 146/77
--- NOTE | 2020-04-07 19:25 | NUR ---
ENDORSED PT TO SUPERVISOR LOCOMOTIVE NURSE, PT ON 4NC, DISCHARGE PAPERWORK FILLED OUT AND SIGNED, COPIES TO PT. AWAITING OXYGEN DELIVERY FOR PT TO BE DISCHARGED
--- NOTE | 2020-04-07 19:30 | NUR ---
RECEIVED BEDSIDE REPORT FROM DAY SHIFT NURSE FOR CONTINUITY OF CARE. PT IS AWAKE AND ALERT. ON 4L O2 NC WITH BREATHING UNLABORED. MED SURG PT. NO RESPIRATORY DISTRESS NOTED. SKIN IS WARM, DRY, AND INTACT. IV JUST DC'D PER DAY SHIFT NURSE PER PENDING DISCHARGE WHEN OXYGEN ARRIVES. [facility] TO DELIVERY OXYGEN. DAY SHIFT NURSE DID DISCHARGE PAPERWORK AND DISCHARGE INSTRUCTIONS. WILL AWAIT OXYGEN AND RIDE FROM FAMILY. PT IS STABLE AT THIS TIME. PLAN OF CARE DISCUSSED.
--- NOTE | 2020-04-07 21:00 | NUR ---
RECEIVED TRANSPORT OXYGEN FROM [facility]. SIGNED AND BROUGHT OXYGEN TANK TO ROOM WITH INSTRUCTIONS FOR PATIENT AND RECEIPT.
--- NOTE | 2020-04-07 21:30 | NUR ---
SPOKE TO PATIENT'S AND WAS INFORMED THAT OXYGEN HAS STILL NOT BEEN RECEIVED AT THE HOUSE. CALLED [facility] AND SPOKE TO PANTOGRAPH SETTER. THEY SPOKE TO THE VARNISH MELTER HELPER AND INFORMED ME THAT THE HOME OXYGEN WOULD BE DELIVERED BY MIDNIGHT TONIGHT. RELAYED MESSAGE TO , SHAE AND INFORMED PT. WILL WAIT FOR A CALL FROM SAYING THAT SHE RECEIVED HOME O2 AND THAT SHE IS READY TO PRIMARY CARE COORDINATOR PT FOR DISCHARGE.
--- NOTE | 2020-04-07 22:06 | NUR ---
NOTIFIED DOCTOR ALLISON ABOUT PT'S POSITIVE PCR RESULTS FOR COVID.
--- NOTE | 2020-04-07 23:11 | NUR ---
PT'S FAMILY STATED THAT THE HOME O2 WAS RECEIVED AT HOME AND WILL BE LEAVING SOON TO DIRECTOR OF APPLICATION DEVELOPMENT PT.
--- NOTE | 2020-04-07 23:27 | NUR ---
SPOKE TO [facility] SPINE SUPERVISOR AND PT'S HOME O2 WAS CONFIRMED FOR DELIVERY. WILL DISCHARGE PT.
--- NOTE | 2020-04-07 23:40 | NUR ---
PT WAS DISCHARGED TO HOME BY VEHICLE WITH HIS . IV WAS REMOVED AND INTACT. IV BAND WAS REMOVED. BELONGINGS WERE TAKEN WITH PT. PT IS STABLE. O2 SAT WAS 93% ON 6L O2 NC. PT WAS GIVEN OXYGEN TANK PORTABLE FOR TRANSPORT AND HOOKED UP TO 6L O2 NC.
== END 2020-04-07 23:40 | disposition home or self-care (01) | DRG 177 ==
LOC: MED 15:05 → EEVIPCON 23:21 → MTU 23:21
PROVIDERS: ADMIT Family Medicine; ATTEND Family Medicine
PROC: XW033E5 Introduction of Remdesivir Anti-infective into Peripheral Vein, Percutaneous Approach, New Technology Group 5 (ICD-10-PCS; principal; 2020-04-03)
DX: U07.1 COVID-19 (principal); N17.0 Acute kidney failure with tubular necrosis; J96.01 Acute respiratory failure with hypoxia; J12.89 Other viral pneumonia; E43 Unspecified severe protein-calorie malnutrition; J45.901 Unspecified asthma with (acute) exacerbation; I10 Essential (primary) hypertension; E87.6 Hypokalemia; E86.0 Dehydration; R73.9 Hyperglycemia, unspecified; E83.42 Hypomagnesemia; E78.5 Hyperlipidemia, unspecified; Z68.35 Body mass index [BMI] 35.0-35.9, adult; Z79.899 Other long term (current) drug therapy
CPT/HCPCS: 36415; 36600; 71045; 80053; 80076; 81001; 82150; 82550; 82728; 82803; 82948; 83036; 83605; 83615; 83690; 83735; 83880; 84100; 84436; 84439; 84443; 84479; 84484; 85025; 85379; 85384; 85610; 85651; 85730; 86140; 86886; 86900; 86901; 87040; 87081; 87086; 87420; 87804; 93005; 99291; J0696; J1644; J2060; J7060; U0003